=== PATIENT | male | born 1940 | race Caucasian/White ===

== ENCOUNTER 2017-02-20 15:26 | Emergency (ER) | payer OTHER ==
[2017-02-20 15:37] VITALS: BP 147/38; PULSE 65; TEMP 97.9; BMI 25.0
--- NOTE | 2017-02-20 17:20 | PDOC ---
History of Present Illness - General Chief Complaint: Chest Pain Stated Complaint: chest pain Time Seen by Provider: 02/20/17 17:19 History Source: Patient Exam Limitations: No Limitations Past History - Past Medical History Allergies/Adverse Reactions: Allergies Allergy/AdvReac Type Severity Reaction Status Date / Time Penicillins Allergy Unknown Verified 12/04/15 09:57 Home Medications: Ambulatory Orders NK [No Known Home Medication] 12/04/15 Suicide Attempt (Hx): No Other medical history: pt denies - Immunization History Immunization Up to Date: No - Psycho/Social/Smoking Cessation Hx Anxiety: No Suicidal Ideation: No Smoking History: Never smoked Have you smoked in the past 12 months: No If you are a former smoker, when did you quit?: 2012 Information on smoking cessation initiated: No Hx Alcohol Use: No Drug/Substance Use Hx: No Substance Use Type: None *Physical Exam - Vital Signs Last Vital Signs Temp Pulse Resp BP Pulse Ox 97.9 F 65 17 147/38 95 02/20/17 15:34 02/20/17 15:34 02/20/17 15:34 02/20/17 15:34 02/20/17 15:34 *DC/Admit/Observation/Transfer - Discharge Dispostion Disposition: AGAINST MEDICAL ADVICE - Referrals Referrals: Rosalie Silverman [Primary Care Provider] -
--- NOTE | 2017-02-20 17:50 | PDOC ---
Attending Attestation - Resident Resident Name: Frances Razo - ED Attending Attestation I have performed the following: I have examined & evaluated the patient, The case was reviewed & discussed with the resident, I agree w/resident's findings & plan, Exceptions are as noted
--- NOTE | 2017-02-23 10:43 | EKG ---
Test Reason : Blood Pressure : / mmHG Vent. Rate : 082 BPM Atrial Rate : 069 BPM P-R Int : 150 ms QRS Dur : 154 ms QT Int : 450 ms P-R-T Axes : 070 054 041 degrees QTc Int : 525 ms SINUS RHYTHM WITH OCCASIONAL PREMATURE VENTRICULAR COMPLEXES RIGHT BUNDLE BRANCH BLOCK ABNORMAL ECG WHEN COMPARED WITH ECG OF 04-DEC-2015 09:48, PREMATURE VENTRICULAR COMPLEXES ARE NOW PRESENT Confirmed by MICHAEL JAMESON, TORREY ([id number]) on 02/23/2017 10:43:08 AM Referred By: Confirmed By:TORREY RODRIGUEZ MD
== END 2017-02-20 18:38 | disposition left against medical advice (07) ==
LOC: JER 15:26
DX: Z53.21 Procedure and treatment not carried out due to patient leaving prior to being seen by health care provider (principal)
CPT/HCPCS: 71010-TC; 93005; 93010; 99281-25

== ENCOUNTER 2018-09-03 12:00 | Inpatient (IN) | payer OTHER ==
--- NOTE | 2018-09-03 12:18 | PDOC ---
History of Present Illness - General Stated Complaint: ABD PAIN Time Seen by Provider: 09/03/18 12:16 History Source: Patient Exam Limitations: No Limitations - History of Present Illness Initial Comments: 09/03/18 12:21 This is a 77 yo M with PMH of COPD, gerd and prior EtOH abuse (quit), who presents to ED due to severe 9/10 RUQ-epigastric abd pain. pain started yesterday morning as soon as he woke up, is constant, nonradiating, associated with 4 episodes of watery light brown diarrhea yesterday.He never had this pain before. He also complains of cough productive of yellow sputum since yesterday and on/off dull h/a. denies sob, cp, palpitations, lightheadedness, n/v, f/c, dysuria, hematuria, melena, hematochezia. no recent abx use or alcohol consumption. 09/03/18 13:19 09/03/18 13:22 Past History - Past Medical History Allergies/Adverse Reactions: Allergies Allergy/AdvReac Type Severity Reaction Status Date / Time Penicillins Allergy Unknown Verified 12/04/15 09:57 Home Medications: Ambulatory Orders NK [No Known Home Medication] 12/04/15 - Immunization History Immunization Up to Date: No - Suicide/Smoking/Psychosocial Hx Smoking History: Never smoked Have you smoked in the past 12 months: No If you are a former smoker, when did you quit?: 2012 Hx Alcohol Use: No Drug/Substance Use Hx: No Substance Use Type: None Review of Systems - Review of Systems Able to Perform ROS?: Yes Is the patient limited Korean proficient: No Constitutional: Yes: Weakness. No: Chills, Fever HEENTM: No: Nose Congestion, Throat Pain Respiratory: Yes: Cough (productive of yellow sputum ). No: Orthopnea, Shortness of Breath, Wheezing Cardiac (ROS): No: Chest Pain, Edema, Lightheadedness, Palpitations, Syncope ABD/GI: Yes: Diarrhea, Abdominal cramping (ruw). No: Abdominal Distended, Abd. Pain w/ defecation, Blood Streaked Bowels, Constipated, Nausea, Vomiting : No: Dysuria Musculoskeletal: No: Back Pain Neurological: Yes: Headache *Physical Exam - Physical Exam General Appearance: Yes: Nourished, Appropriately Dressed, Severe Distress. No : Alcohol on Breath HEENT: positive: EOMI, Normal Voice Neck: positive: Supple. negative: Tender, Carotid bruit, Lymphadenopathy (R), Lymphadenopathy (L) Respiratory/Chest: positive: Lungs Clear, Normal Breath Sounds Cardiovascular: positive: Regular Rate, S1, S2. negative: JVD Gastrointestinal/Abdominal: positive: Tender (ruq most tender, also tender in RLQ and epigasrium ), Decreased BS, Guarding (ruq voluntarily). 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 09/03/18 15:51 Abd us significant for distended GB and large complex renal cysts in R kidney ( as previously seen on MRI) 09/03/18 18:[address] pending 09/03/18 18:53 *DC/Admit/Observation/Transfer Diagnosis at time of Disposition: Abdominal pain Qualifiers: Abdominal location: right upper quadrant Qualified Code(s): R10.11 - Right upper quadrant pain - Referrals - Patient Instructions - Post Discharge Activity
[2018-09-03] MEDS ORDERED: morphine CARPU-JECT 4 MG/1 ML DISP.SYRIN IVPUSH ONE ×2 (12:47→14:06)
[2018-09-03] MEDS ORDERED: SODIUM CHLORIDE 0.9% 500 ML INFUS.BAG IV ONE ×2 (12:48→18:31)
--- NOTE | 2018-09-03 13:31 | PDOC ---
Attending Attestation - HPI HPI: This patient is a 77 year old Citizen Of [place]-speaking male, with PMHx of COPD, GERD, prior EtOH abuse(denies current use), who presents to the ED with RUQ pain since yesterday morning. Patient reports sudden onset after waking up, RUQ pain , constant, nonradiating, rates 9/10. Patient states that he has never experienced this pain before. He also endorses 4 episodes of non-bloody diarrhea yesterday. Also reports 2 days of coughing up yellow phlegm. Denies any nausea, vomiting, fever, chills, chest pain, palpitations, lightheadedness, urinary symptoms. Denies any recent antibiotic use, denies prior abdominal surgeries. Denies recent EtOH consumption. Allergies: penicillin - Physicial Exam PE: Vitals: Triage Vital signs reviewed General Appearance: writhing in pain, well nourished well developed Neck: Supple; No Nuchal rigidity Chest Wall: Nontender Cardiac: Regular rate and rhythm, no murmurs, no rubs, no gallops Lungs: Clear to auscultation bilateral, good air movement bilaterally Abdomen: Soft, non distended, normal bowel sounds, maximally tender to RUQ Genitourinary: Rectal: Exam deferred Extremities: Full range of motion to all extremities, no cyanosis, clubbing, or edema Skin: Warm and dry, no rashes or lesions, no rash, no petechiae Neuro: AOX3; Cranial Nerves 2-12 grossly intact, Strength intact to all extremities, Sensation intact to all extremities, gait normal Psych: Normal mood, normal affect <Sanjuana Hallman - Last Filed: 09/03/18 13:36> - Resident Resident Name: Rosie Garcia - ED Attending Attestation I have performed the following: I have examined & evaluated the patient, The case was reviewed & discussed with the resident, I agree w/resident's findings & plan, Exceptions are as noted - Medical Decision Making 09/03/18 16:21 This patient is a 77 year old Citizen [place]-speaking male, with PMHx of COPD, GERD, prior EtOH abuse(denies current use), who presents to the ED with RUQ pain since yesterday morning. Patient reports sudden onset after waking up, RUQ pain , constant, nonradiating, rates 9/10. Patient states that he has never experienced this pain before. He also endorses 4 episodes of non-bloody diarrhea yesterday. Also reports 2 days of coughing up yellow phlegm. Moderate to severe right upper quadrant pain distended gallbladder laboratory analysis within normal limits to the severity of pain we'll CT abdomen pelvis with IV contrast to rule out other pathology Dr. Cook to follow up CTA and reassess <Enoc Marrufo - Last Filed: 09/03/18 16:22>
[2018-09-03] MEDS ORDERED: ERTAPENEM SODIUM 1 GM/50 ML PRE-DOCKED IVPB ONE (13:36)
[2018-09-03] MEDS ORDERED: morphine SULFATE 4 MG/ML VIAL ONE ×2 (13:38→14:07)
[2018-09-03 14:03] LABS: BASO % 0.1 % (0-2.0); EOS % 9.8 % (0-4.5); HEMATOCRIT 32.8 % (35.4-49); HEMOGLOBIN 11.1 GM/dL (11.7-16.9); LYMPH % 20.7 % (8-40); MCH 30.4 pg (25.7-33.7); MEAN CELL VOLUME 89.3 fl (80-96); MEAN PLT VOLUME 11.2 fl (7.5-11.1); MONO % 6.7 % (3.8-10.2); NEUT % 62.7 % (42.8-82.8); PLATELET COUNT 90 K/MM3 (134-434); RBC 3.67 M/mm3 (4.00-5.60); RDW 14.3 % (11.9-15.9); WHITE BLOOD COUNT 4.3 K/mm3 (4.0-10.0)
[2018-09-03] MEDS ORDERED: ACETAMINOPHEN 1000 MG/100 ML VIAL (NON FORMULARY) IVPB ONE (14:06)
[2018-09-03 14:14] LABS: URINE APPEARANCE CLEAR; URINE BILIRUBIN NEGATIVE (<2.0 mg/dL); URINE COLOR YELLOW; URINE GLUCOSE (UA) NEGATIVE (NEGATIVE); URINE KETONE NEGATIVE (NEGATIVE); URINE LEUK ESTERASE NEGATIVE (NEGATIVE); URINE NITRITE NEGATIVE (NEGATIVE); URINE PROTEIN NEGATIVE (NEGATIVE); URINE UROBILINOGEN NEGATIVE mg/dL (0.2-1.0)
[2018-09-03 14:35] LABS: ALBUMIN 3.6 g/dl (3.4-5.0); ALK PHOS 95 U/L (45-117); ANION GAP 5 MMOL/L (8-16); BILIRUBIN,TOTAL 0.2 mg/dL (0.2-1); BLOOD UREA NITROGEN 20 mg/dL (7-18); CALCIUM 8.9 mg/dL (8.5-10.1); CHLORIDE 107 mmol/L (98-107); CO2 29 mmol/L (21-32); CREATININE 1.1 mg/dL (0.55-1.3); GLUCOSE,RANDOM 96 mg/dL (74-106); LIPASE 132 U/L (73-393); POTASSIUM 4.1 mmol/L (3.5-5.1); SGOT/AST 17 U/L (15-37); SGPT/ALT 25 U/L (13-61); SODIUM 141 mmol/L (136-145); TOT PROT 7.2 g/dl (6.4-8.2); TRIGLYCERIDES 99 mg/dL (0-150)
[2018-09-03] MEDS ORDERED: ACETAMINOPHEN INJECTION 100 ML IVPB ONE (15:03)
[2018-09-03] MEDS ORDERED: ERTAPENEM SODIUM 1 GM VIAL ONE (15:03)
[2018-09-03 15:56] LABS: INR 1.13 (0.83-1.09); PROTHROMBIN TIME (PATIENT) 13.4 SEC (9.7-13.0)
[2018-09-03 15:58] LABS: ACTIVATED PTT 28.9 SECONDS (25.2-36.5)
[2018-09-03] MEDS ORDERED: FAMOTIDINE 20 MG/50 ML IVPB 20 MG/50 ML MG IVPB ONE ×2 (18:14→18:31)
[2018-09-03] MEDS ORDERED: MAG HYDROX/AL HYDROX/SIMETH -MYLANTA- ORAL SUSPENSION PO ONE (18:14)
[2018-09-03] MEDS ORDERED: MAG HYDROX/AL HYDROX/SIMETH 30 ML UNIT-DOSE CUP ONE (18:31)
--- NOTE | 2018-09-03 19:31 | PDOC ---
*Physical Exam - Vital Signs Last Vital Signs Temp Pulse Resp BP Pulse Ox 97.3 F L 64 20 134/62 96 09/03/18 15:23 09/03/18 15:23 09/03/18 15:23 09/03/18 15:23 09/03/18 15:23 ED Treatment Course - LABORATORY CBC & Chemistry Diagram: 09/03/18 13:45 09/03/18 12:45 - ADDITIONAL ORDERS Additional order review: Laboratory Results 09/03/18 09/03/18 09/03/18 15:15 15:15 13:45 PT with INR 13.40 H INR 1.13 H PTT (Actin FS) 28.9 Sodium Potassium Chloride Carbon Dioxide Anion Gap BUN Creatinine Creat Clearance w eGFR Random Glucose Lactic Acid 1.3 Calcium Total Bilirubin AST ALT Alkaline Phosphatase Creatine Kinase Troponin I Total Protein Albumin Triglycerides Lipase Urine Color Urine Appearance Urine pH Ur Specific High View Urine Protein Urine Glucose (UA) Urine Ketones Urine Blood Urine Nitrite Urine Bilirubin Urine Urobilinogen Ur Leukocyte Esterase Blood Type O NEGATIVE Antibody Screen Negative 09/03/18 09/03/18 13:30 12:45 PT with INR INR PTT (Actin FS) Sodium 141 Potassium 4.1 Chloride 107 Carbon Dioxide 29 Anion Gap 5 L BUN 20 H Creatinine 1.1 Creat Clearance w eGFR > 60 Random Glucose 96 Lactic Acid Calcium 8.9 Total Bilirubin 0.2 AST 17 ALT 25 Alkaline Phosphatase 95 Creatine Kinase 40 Troponin I 0.02 Total Protein 7.2 Albumin 3.6 Triglycerides 99 Lipase 132 Urine Color Yellow Urine Appearance Clear Urine pH 7.0 Ur Specific High View 1.020 Urine Protein Negative Urine Glucose (UA) Negative Urine Ketones Negative Urine Blood Negative Urine Nitrite Negative Urine Bilirubin Negative Urine Urobilinogen Negative Ur Leukocyte Esterase Negative Blood Type Antibody Screen 09/03/18 13:45 RBC 3.67 L MCV 89.3 MCHC 34.0 RDW 14.3 MPV 11.2 H Neutrophils % 62.7 Lymphocytes % 20.7 D Monocytes % 6.7 Eosinophils % 9.8 H Basophils % 0.1 - Medications Given in the ED: ED Medications Discontinued Medications Generic Name Dose Route Start Last Admin Trade Name Freq PRN Reason Stop Dose Admin Acetaminophen 1,000 mg 09/03/18 14:06 09/03/18 15:07 Ofirmev Injection - IVPB 09/03/18 14:07 1,000 mg ONCE ONE Administration Al Hydroxide/Mg Hydroxide 30 ml 09/03/18 18:14 09/03/18 18:30 Mylanta Suspension - PO 09/03/18 18:15 30 mg ONCE ONE Administration Ertapenem 1 gm 09/03/18 13:36 09/03/18 15:36 Invanz (Pre-Docked) IVPB 09/03/18 13:37 1 gm ONCE ONE Administration Famotidine/Sodium Chloride 20 mg in 50 mls @ 100 mls/hr 09/03/18 18:14 18:30 Pepcid 20 Mg Premixed Ivpb - IVPB 09/03/18 18:43 100 mls/hr ONCE ONE Administration Morphine Sulfate 4 mg 09/03/18 12:47 09/03/18 13:35 Morphine Injection - IVPUSH 09/03/18 12:48 4 mg ONCE ONE Administration Morphine Sulfate 4 mg 09/03/18 14:06 09/03/18 14:09 Morphine Injection - IVPUSH 09/03/18 14:07 4 mg ONCE ONE Administration Sodium Chloride 1,000 ml 09/03/18 12:48 09/03/18 13:35 Normal Saline - IV 09/03/18 12:49 1,000 ml ONCE ONE Administration Sodium Chloride 1,000 ml 09/03/18 18:31 09/03/18 19:00 Normal Saline - IV 09/03/18 18:32 1,000 ml ONCE ONE Administration Medical Decision Making - Medical Decision Making 09/03/18 19:29 Received sign out from Dr Garcia. Amara You is a 77yo man with a PMH of COPD, GERD, former alcohol abuse who presented to the ED with 9/10, non-radiating, constant epigastric and RUQ abdominal pain since yesterday along with 2x watery diarrhea yesterday without nausea, vomiting, or fevers. He has never had similar pain in the past. ED course so far notable for: - Labs unremarkable - Multiple doses of pain medication required due to persistent pain - Abd US without concerning findings - CT abd indicates gallbladder w/ thickened wall, mild pericholecystic edema, no stone. Also shows ileus w/ air-fluid levels. R renal cysts, seen previously - Will need to be admitted for management of ileus, possible acalculus cholecystitis 09/03/18 19:53 - Discussed admission with Mr You and his grandson, at bedside. They understand the reasons for admission and agree with the plan. - Microblog sent to hospitalist team for admission Discussed with Dr Sandhya Kelley PGY1 *DC/Admit/Observation/Transfer Diagnosis at time of Disposition: Ileus Abdominal pain Qualifiers: Abdominal location: right upper quadrant Qualified Code(s): R10.11 - Right upper quadrant pain - Discharge Dispostion Decision to Admit order: Yes - Referrals - Patient Instructions - Post Discharge Activity
--- NOTE | 2018-09-03 20:01 | PN ---
Teaching Attending Note Name of Resident: Shy Louise ATTENDING PHYSICIAN STATEMENT I saw and evaluated the patient. I reviewed the resident's note and discussed the case with the resident. I agree with the resident's findings and plan as documented. SUBJECTIVE: Patient is a 77 year old man with PMH of COPD, GERD, penicillin allergy and prior EtOH abuse, who presents to ER due to severe RUQ-epigastric pain (9/10 severity). Pain started yesterday morning as soon as he woke up, is constant, nonradiating, associated with 4 episodes of watery light brown diarrhea yesterday.He never had this pain before. He also complains of cough productive of yellow sputum since yesterday and on/off dull h/a. denies sob, cp, palpitations, lightheadedness, n/v, f/c, dysuria, hematuria, melena, hematochezia. no recent antibiotics use or alcohol consumption. OBJECTIVE: Alert Vital Signs Period Temp Pulse Resp BP Sys/Billy Pulse Ox Last 24 Hr 97.2 F-97.3 F 52-64 20-20 134-155/62-64 96-99 HEENT: No Jaundice, eye redness or discharge, PERRLA, EOMI. Normocephalic, atraumatic. External ears are normal and hearing is grossly intact. No nasal discharge. Neck: Supple, nontender. No palpable adenopathy; has thyromegaly. No JVD Chest: Good effort. Clear to auscultation and percussion. Heart: Regular. No S3, rub or murmur Abdomen: Not distended, soft, tender RUQ/RLQ and epigastrium; no HSM. No rebound or guarding. Normoactive bowel sounds. Ext: Peripheral pulses intact. No leg edema. Skin: Warm and dry. No petechiae, rash or ecchymosis. Neuro: Alert. Oriented x3. CN 2-12 grossly intact. Sensation grossly intact in all four extremities and DTR are symmetric. Home Medications Medication Instructions Recorded NK [No Known Home Medication] 12/04/15 Abnormal Lab Results 09/03/18 09/03/18 09/03/18 12:45 13:45 15:15 RBC 3.67 L Hgb 11.1 L Hct 32.8 L Plt Count 90 L MPV 11.2 H Eosinophils % 9.8 H PT with INR 13.40 H INR 1.13 H Anion Gap 5 L BUN 20 H ASSESSMENT AND PLAN: 1. Abdominal Pain - CT scan shows distended gall bladder and associated mild ileus. Cholecystitis is likely culprit. No mention is made of the colon in the preliminary CT abdomen report. He is afebrile and does not have leukocytosis - will withhold antibiotics at this time, get HIDA scan, consult Surgery and GI. He had 4 loose bowel movements yesterday - if diarrhea reoccurs, will send stool for ova and parasites in view of chronic eosinophilia and trips to [facility]. Low platelets is chronic and likely related to alcohol abuse. Keep him NPO, give IV fluids and pain control. Will do basic anemia work up, outpatient urology follow up for multiple renal cysts and right hydronephrosis, TFT and thyroid ultrasound. Though he has not had a drink since Jul 2018, but we will monitor him closely for signs of alcohol withdrawal. 2. Obesity - Will provide patient all the necessary assistance, counseling and positive reinforcement to facilitate weight loss. Consult preventive maintenance coordinator. 3. DVT prophylaxis - Lovenox 40 mg SQ q 24 hours. 4. Advance directives - Full code
[2018-09-03] MEDS ORDERED: morphine CARPU-JECT 2 MG/1 ML DISP.SYRIN IVPUSH PRN (21:23)
[2018-09-03] MEDS ORDERED: ACETAMINOPHEN 325 MG TABLET (FP) PO PRN (21:27)
--- NOTE | 2018-09-03 21:36 | HP ---
CHIEF COMPLAINT: abdominal pain PCP: none HISTORY OF PRESENT ILLNESS: 77 [place]-speaking male w/ pmhx of COPD, GERD, EtOH abuse presented to the hospital with complaints of RUQ abdominal pain since yesterday morning. Pt's grandson is present at bedside. He states the pain was 9/10, severe, constant, non-radiating. It started right when he woke up in the morning and denies eating prior to this episode. He also states he has not had this pain in the past. Pt also admits to 4 episodes of watery light brown diarrhea yesterday. He denies eating anything and notes that the last food intake was a slice of bread yesterday. Admits to nausea, intermittent headaches, and pain all over the body when his abdominal pain intensifies. He denies chest pain, sob, urinary/bowel symptoms, blood in urine/stool. He has only taken DayQuil yesterday for his symptoms, but with no relief. ER course was notable for: (1) Abd U/S showed overdistended GB, CTAP (initial read) showed GB is moderately distended w/ a thickened appearance of the GB wall and mild pericholecystic edema concerning for cholecystitis (2) Morphine 4 mg IVP x2, Ertapenem 1gm, IV Tylenol, Mylanta 30 mL, Pepcid 20 mg IVPB, NS x 2L Recent Travel: Recently arrived in the [place] from after 2 months (Pt visits his home country for extended periods of time throughout the year) PAST MEDICAL HISTORY: EtOH abuse COPD GERD PAST SURGICAL HISTORY: laser surgery on b/l LE Social History: Smoking: former smoker, stopped 20 years ago Alcohol: stopped drinking heavily about 1 month ago, used to drink 3 times a week about 1 bottle of liquor; last drink, however was this past Thursday (1 beer) Drugs: Denies Family History: Allergies Penicillins Allergy (Unknown, Verified 12/04/15 09:57) HOME MEDICATIONS: Home Medications Medication Instructions Recorded NK [No Known Home Medication] 12/04/15 REVIEW OF SYSTEMS CONSTITUTIONAL: Admits to loss of appetite; Denies fever, chills, diaphoresis, generalized weakness HEENT: Admits to cough, but denies difficulty swallowing, ear pain, eye pain CARDIOVASCULAR: Denies chest pain, palpitations, irregular heart rate, lightheadedness, peripheral edema RESPIRATORY: Admits to cough; denies sob, hoskins, orthopnea, wheezing GASTROINTESTINAL: Admits to severe abd pain, nausea, diarrhea; Denies abdominal distension, vomiting, constipation GENITOURINARY: Denies hematuria, dysuria MUSCULOSKELETAL: Admits to myalgia when abd pain spikes NEUROLOGIC: Admits to shabazz; denies dizziness, mental status changes, bladder/ bowel incontinence PHYSICAL EXAMINATION Vital Signs - 24 hr 09/03/18 09/03/18 09/03/18 12:35 15:23 20:49 Temperature 97.2 F L 97.3 F L 98.1 F Pulse Rate 52 L Pulse Rate [ 64 60 Apical] Respiratory 20 20 20 Rate Blood Pressure 155/64 Blood Pressure 134/62 140/65 [Right Arm] O2 Sat by Pulse 99 96 96 Oximetry (%) GENERAL: AAOx3. Laying comfortably. HEENT: AT/NC. EOMI. Dry mucus membranes. NECK: Normal range of motion, thyromegaly. LUNGS: B/l fine crackles in lower lung bases. Symmetric chest rise. HEART: RRR. Normal S1, S2. No murmurs noted. ABDOMEN: Soft, tender to palpation in RUQ. +Brown sign. MUSCULOSKELETAL: Normal range of motion at all joints EXTREMITIES: 5/5 muscle strenght in u/l b/l extremities. NEUROLOGICAL: Cranial nerves II-XII intact. Normal speech. CBCD WBC 4.3 K/mm3 (4.0-10.0) 09/03/18 13:45 RBC 3.67 M/mm3 (4.00-5.60) L 09/03/18 13:45 Hgb 11.1 GM/dL (11.7-16.9) L 09/03/18 13:45 Hct 32.8 % (35.4-49) L 09/03/18 13:45 MCV 89.3 fl (80-96) 09/03/18 13:45 MCHC 34.0 g/dl (32.0-35.9) 09/03/18 13:45 RDW 14.3 % (11.9-15.9) 09/03/18 13:45 Plt Count 90 K/MM3 (134-434) L 09/03/18 13:45 MPV 11.2 fl (7.5-11.1) H 09/03/18 13:45 CMP Sodium 141 mmol/L (136-145) 09/03/18 12:45 Potassium 4.1 mmol/L (3.5-5.1) 09/03/18 12:45 Chloride 107 mmol/L (98-107) 09/03/18 12:45 Carbon Dioxide 29 mmol/L (21-32) 09/03/18 12:45 Anion Gap 5 MMOL/L (8-16) L 09/03/18 12:45 BUN 20 mg/dL (7-18) H 09/03/18 12:45 Creatinine 1.1 mg/dL (0.55-1.3) 09/03/18 12:45 Creat Clearance w eGFR > 60 (>60) 09/03/18 12:45 Calcium 8.9 mg/dL (8.5-10.1) 09/03/18 12:45 Total Bilirubin 0.2 mg/dL (0.2-1) 09/03/18 12:45 AST 17 U/L (15-37) 09/03/18 12:45 ALT 25 U/L (13-61) 09/03/18 12:45 Alkaline Phosphatase 95 U/L (45-117) 09/03/18 12:45 Total Protein 7.2 g/dl (6.4-8.2) 09/03/18 12:45 Albumin 3.6 g/dl (3.4-5.0) 09/03/18 12:45 CONSULT Surg- Dr. Gregorio IMAGING * CXR: Interval patchy airspace nodular-like densities in the RUL at site of previously visualized multiple bulla suggestive of infiltrates w/ pleural thickening. * Abd U/S: Borderline over-distended GB w/o intraluminal stones or sonographic evidence of acute cholecystitis. Multiple R renal cysts/parapelvic cysts w/ the largest measuring 5.3 x 3.9 cm. Splenomegaly. * CTAP w/ IV contrast: ([place] read) GB is moderately distended w/ a thickened appearance of the GB wall and mild pericholecystic edema concerning for cholecystitis. NO radio-opaque stones visualized. Liver, spleen, pancreas and adrenal glands are unremarkable. Multiple R renal cysts including a lobulated upper pole cyst w/ calcified septations. 2 small L renal cysts. Few non-distended loops of fluid-filled small bowel w/ air-fluid levels, likely ileus. No discrete transition point identified. Normal appendix. Diffuse mild thickened appearance of the colon may be 2/2 under distension vs. colitis. ASSESSMENT/PLAN: 77M w/ pmhx of COPD, GERD, EtOH abuse presented to the hospital with 1 day history of abdominal pain. #Abdominal pain; 2/2 ileus, acalculous cholecystitis, vs. gastritis -Pt's abdominal pain is controlled and now 3/10 after pain meds. He is afebrile with normal white count, and LFTs. Although abd imaging shows overdistended GB, clinically pt does not seem to have an infection at this time. He was given one dose of Ertapenem in the ED so far. Will hold antibiotics for now as pt is clinically improving. -Morphine 2 mg IVP for pain -NPO -IVf -Surg consult (Dr. Gregorio) -Consider GI consult #Diarrhea; Pt had 4 episodes of watery light brown diarrhea yesterday and also just arrived from the [facility] recently. -Due to eosinophilia and recent travel to the [facility], will order stool culture/ova & parasites -cont to monitor #Hx of EtOH abuse; Recently quit heavy drinking about 1 month ago. -Stable, but will cont to monitor for signs of withdrawal. #Thrombocytopenia; likely 2/2 to significant hx of alcohol abuse -hold heparin for possible surgery #Bilateral renal cysts -will need outpatient follow up #Ppx -SCDs, hold heparin #FEN -NS @ 83 -recheck lytes in AM -NPO dispo -full code -admit to med-surg Visit type - Emergency Visit Emergency Visit: Yes ED Registration Date: 09/03/18 Care time: The patient presented to the Emergency Department on the above date and was hospitalized for further evaluation of their emergent condition. - New Patient This patient is new to me today: Yes Date on this admission: 09/04/18 - Critical Care Critical Care patient: No
[2018-09-03] MEDS: SODIUM CHLORIDE 1,000 ML IV SCH (21:43)
[2018-09-04 08:57] LABS: BASO % 0.3 % (0-2.0); EOS % 11.5 % (0-4.5); HEMATOCRIT 32.4 % (35.4-49); HEMOGLOBIN 11.1 GM/dL (11.7-16.9); LYMPH % 34.8 % (8-40); MCH 30.5 pg (25.7-33.7); MCHC 34.1 g/dl (32.0-35.9); MEAN CELL VOLUME 89.4 fl (80-96); MEAN PLT VOLUME 12.4 fl (7.5-11.1); MONO % 8.4 % (3.8-10.2); PLATELET COUNT 69 K/MM3 (134-434); RBC 3.62 M/mm3 (4.00-5.60); RDW 14.2 % (11.9-15.9); WHITE BLOOD COUNT 2.7 K/mm3 (4.0-10.0)
[2018-09-04 09:19] LABS: ALBUMIN 3.1 g/dl (3.4-5.0); ALK PHOS 93 U/L (45-117); ANION GAP 3 MMOL/L (8-16); BILIRUBIN,TOTAL 0.4 mg/dL (0.2-1); BLOOD UREA NITROGEN 15 mg/dL (7-18); CALCIUM 8.4 mg/dL (8.5-10.1); CHLORIDE 111 mmol/L (98-107); CO2 28 mmol/L (21-32); CREATININE 0.9 mg/dL (0.55-1.3); GLUCOSE,RANDOM 73 mg/dL (74-106); MAGNESIUM 2.1 mg/dL (1.8-2.4); PHOSPHOROUS 2.8 mg/dL (2.5-4.9); POTASSIUM 4.4 mmol/L (3.5-5.1); SGOT/AST 49 U/L (15-37); SGPT/ALT 53 U/L (13-61); SODIUM 143 mmol/L (136-145); TOT PROT 6.4 g/dl (6.4-8.2)
[2018-09-04] MEDS: SODIUM CHLORIDE 1,000 ML IV SCH ×2 (10:33→23:23)
--- NOTE | 2018-09-04 11:09 | CONSULT ---
- Consultation REQUESTING PROVIDER: Aspen JAMESON CONSULT REQUEST: We have been asked to surgically evaluate this patient for abdominal pain PCP:Devan Perrin HISTORY OF PRESENT ILLNESS: CTSP for management of abdominal pain; hx. obtained in [place] PMHx: PSHx: Home Medications Medication Instructions Recorded NK [No Known Home Medication] 12/04/15 Allergies Allergy/AdvReac Type Severity Reaction Status Date / Time Penicillins Allergy Unknown Verified 12/04/15 09:57 PHYSICAL EXAM: GENERAL: Awake, alert, and fully oriented, in no acute distress. HEAD: Normal with no signs of trauma. EYES:sclera anicteric, conjunctiva clear. NECK: Normal ROM, supple without lymphadenopathy, JVD, or masses. ABDOMEN: Soft, diffusely tender, not distended, hyperactive bowel sounds, no guarding, no rebound, no masses. No organomegaly. No hernias MUSCULOSKELETAL: Normal ROM at all joints. No bony deformities or tenderness. No CVA tenderness. UPPER EXTREMITIES: 2+ pulses, warm, well-perfused. No cyanosis. Cap refill <2 seconds. No peripheral edema. LOWER EXTREMITIES: 2+ pulses, warm, well-perfused. No calf tenderness. No peripheral edema. NEUROLOGICAL: Normal speech, gait not observed. PSYCH: Cooperative. Good eye contact. Appropriate mood and affect. SKIN: Warm, dry, normal turgor, no rashes or lesions noted. Vital Signs Temperature 97.4 F L 09/04/18 06:00 Pulse Rate 67 09/04/18 06:00 Respiratory Rate 18 09/04/18 06:00 Blood Pressure 141/76 09/04/18 06:00 O2 Sat by Pulse Oximetry (%) 96 09/03/18 20:49 Lab Results WBC 2.7 K/mm3 (4.0-10.0) L 09/04/18 07:50 RBC 3.62 M/mm3 (4.00-5.60) L 09/04/18 07:50 Hgb 11.1 GM/dL (11.7-16.9) L 09/04/18 07:50 Hct 32.4 % (35.4-49) L 09/04/18 07:50 MCV 89.4 fl (80-96) 09/04/18 07:50 MCHC 34.1 g/dl (32.0-35.9) 09/04/18 07:50 RDW 14.2 % (11.9-15.9) 09/04/18 07:50 Plt Count 69 K/MM3 (134-434) L D 09/04/18 07:50 Sodium 143 mmol/L (136-145) 09/04/18 07:50 Potassium 4.4 mmol/L (3.5-5.1) 09/04/18 07:50 Chloride 111 mmol/L (98-107) H 09/04/18 07:50 Carbon Dioxide 28 mmol/L (21-32) 09/04/18 07:50 Anion Gap 3 MMOL/L (8-16) L 09/04/18 07:50 BUN 15 mg/dL (7-18) 09/04/18 07:50 Creatinine 0.9 mg/dL (0.55-1.3) 09/04/18 07:50 Random Glucose 73 mg/dL (74-106) L 09/04/18 07:50 Calcium 8.4 mg/dL (8.5-10.1) L 09/04/18 07:50 Blood Type O NEGATIVE 09/03/18 19:15 Antibody Screen Negative 09/03/18 15:15 INR 1.13 (0.83-1.09) H 09/03/18 15:15 CT a/p-pancolitis; ileus vs. partial sbo(doubt); renal cysts and other non specific findings US-w/o cholelithiasis IMP:abdominal pain; most likely pancolotis; hx/PE/imaging findings not c/w biliary tract as source of complaints PLAN: Suggest NPO/IVF/w/u for infectious colitis; will f/u; no evidence of an acute surgical abdomen. Sharan Gregorio MD FACS
--- NOTE | 2018-09-04 12:18 | PN ---
Progress Note (short form) - Note Progress Note: Patient is c/o having severe abdominal pain RUQ area. Vital Signs Temperature 97.5 F L 09/04/18 10:00 Pulse Rate 64 09/04/18 10:00 Respiratory Rate 20 09/04/18 10:00 Blood Pressure 134/70 09/04/18 10:00 O2 Sat by Pulse Oximetry (%) 96 09/03/18 20:49 GENERAL: AAOx3. Laying comfortably. HEENT: AT/NC. EOMI. Dry mucus membranes. NECK: Normal range of motion, thyromegaly. LUNGS: B/l fine crackles in lower lung bases. Symmetric chest rise. HEART: RRR. Normal S1, S2. No murmurs noted. ABDOMEN: Soft, tender to palpation in RUQ. +Brown sign. MUSCULOSKELETAL: Normal range of motion at all joints EXTREMITIES: 5/5 muscle strenght in u/l b/l extremities. NEUROLOGICAL: Cranial nerves II-XII intact. Normal speech. CBCD WBC 2.7 K/mm3 (4.0-10.0) L 09/04/18 07:50 RBC 3.62 M/mm3 (4.00-5.60) L 09/04/18 07:50 Hgb 11.1 GM/dL (11.7-16.9) L 09/04/18 07:50 Hct 32.4 % (35.4-49) L 09/04/18 07:50 MCV 89.4 fl (80-96) 09/04/18 07:50 MCHC 34.1 g/dl (32.0-35.9) 09/04/18 07:50 RDW 14.2 % (11.9-15.9) 09/04/18 07:50 Plt Count 69 K/MM3 (134-434) L D 09/04/18 07:50 MPV 12.4 fl (7.5-11.1) H D 09/04/18 07:50 CMP Sodium 143 mmol/L (136-145) 09/04/18 07:50 Potassium 4.4 mmol/L (3.5-5.1) 09/04/18 07:50 Chloride 111 mmol/L (98-107) H 09/04/18 07:50 Carbon Dioxide 28 mmol/L (21-32) 09/04/18 07:50 Anion Gap 3 MMOL/L (8-16) L 09/04/18 07:50 BUN 15 mg/dL (7-18) 09/04/18 07:50 Creatinine 0.9 mg/dL (0.55-1.3) 09/04/18 07:50 Creat Clearance w eGFR > 60 (>60) 09/04/18 07:50 Random Glucose 73 mg/dL (74-106) L 09/04/18 07:50 Calcium 8.4 mg/dL (8.5-10.1) L 09/04/18 07:50 Total Bilirubin 0.4 mg/dL (0.2-1) 09/04/18 07:50 AST 49 U/L (15-37) H 09/04/18 07:50 ALT 53 U/L (13-61) 09/04/18 07:50 Alkaline Phosphatase 93 U/L (45-117) 09/04/18 07:50 Total Protein 6.4 g/dl (6.4-8.2) 09/04/18 07:50 Albumin 3.1 g/dl (3.4-5.0) L 09/04/18 07:50 CARDIAC ENZYMES Creatine Kinase 40 U/L (26-308) 09/03/18 12:45 Troponin I 0.02 ng/ml (0.00-0.05) 09/03/18 12:45 Current Medications Generic Name Dose Route Start Last Admin Trade Name Freq PRN Reason Stop Dose Admin Acetaminophen 650 mg 09/03/18 21:27 Tylenol - PO Q6H PRN PAIN LEVEL 6-10 Sodium Chloride 1,000 mls @ 83 mls/hr 09/03/18 21:30 09/04/18 10:33 Normal Saline - IV 09/06/18 09:33 83 mls/hr ASDIR PATRICK Administration Morphine Sulfate 2 mg 09/04/18 07:35 Morphine Sulfate IVPUSH Q4H PRN PAIN LEVEL 6-10 Home Medications Medication Instructions Recorded NK [No Known Home Medication] 12/04/15 Current Medications Generic Name Dose Route Start Last Admin Trade Name Freq PRN Reason Stop Dose Admin Acetaminophen 1,000 mg 09/04/18 16:13 Ofirmev Injection - IVPB Q8H PRN PAIN LEVEL 4 - 6 Sodium Chloride 1,000 mls @ 83 mls/hr 09/03/18 21:30 09/04/18 10:33 Normal Saline - IV 09/06/18 09:33 83 mls/hr ASDIR PATRICK Administration Metronidazole 500 mg in 100 mls @ 100 mls/hr 09/04/18 18:00 Flagyl 500mg Premixed Ivpb - IVPB Q8H-IV PATRICK Levofloxacin 500 mg in 100 mls @ 100 mls/hr 09/04/18 16:15 Levaquin 500 Mg Premixed Ivpb - IVPB DAILY PATRICK Protocol Morphine Sulfate 2 mg 09/04/18 07:35 09/04/18 14:56 Morphine Sulfate IVPUSH 2 mg Q4H PRN Administration PAIN LEVEL 7-10 CXR: Interval patchy airspace nodular-like densities in the RUL at site of previously visualized multiple bulla suggestive of infiltrates w/ pleural thickening. Abd U/S: Borderline over-distended GB w/o intraluminal stones or sonographic evidence of acute cholecystitis. Multiple R renal cysts/parapelvic cysts w/ the largest measuring 5.3 x 3.9 cm. Splenomegaly. CTAP w/ IV contrast: ([place] read) GB is moderately distended w/ a thickened appearance of the GB wall and mild pericholecystic edema concerning for cholecystitis. NO radio-opaque stones visualized. Liver, spleen, pancreas and adrenal glands are unremarkable. Multiple R renal cysts including a lobulated upper pole cyst w/ calcified septations. 2 small L renal cysts. Few non-distended loops of fluid-filled small bowel w/ air-fluid levels, likely ileus. No discrete transition point identified. Normal appendix. Diffuse mild thickened appearance of the colon may be 2/2 under distension vs. colitis. ASSESSMENT/PLAN: 77M w/ pmhx of COPD, GERD, EtOH abuse presented to the hospital with 1 day history of abdominal pain. # Acute pancolitis will start the patient on IV antibiotic levaquin/flagyl IV, GI and ID consult appreciated, surgical consult appreciated. #Diarrhea; Pt had 4 episodes of watery light brown diarrhea yesterday and also just arrived from the [place] recently. -Due to eosinophilia and recent travel to the [place], will order stool culture/ova & parasites, follow the cx #RUQ cannot r/o acute cholecystitis ,will start the patient antibiotic #Hx of EtOH abuse; Recently quit heavy drinking about 1 month ago. -Stable, but will cont to monitor for signs of withdrawal. #Thrombocytopenia; likely 2/2 to significant hx of alcohol abuse -hold heparin for possible surgery #Bilateral multiple renal cysts , will get nephro consult. -will need outpatient follow up #Ppx; SCDs, hold heparin Visit type - Emergency Visit Emergency Visit: Yes ED Registration Date: 09/03/18 Care time: The patient presented to the Emergency Department on the above date and was hospitalized for further evaluation of their emergent condition. - New Patient This patient is new to me today: Yes Date on this admission: 09/04/18 - Critical Care Critical Care patient: Yes Total Critical Care Time (in minutes): 35 Critical Care Statement: The care of this patient involved high complexity decision making to prevent further life threatening deterioration of the patient 's condition and/or to evaluate & treat vital organ system(s) failure or risk of failure. - Discharge Referral Referred to [facility] No
[2018-09-04] MEDS: MORPHINE SULFATE 2 MG/ML VIAL IVPUSH PRN (14:56)
[2018-09-04] MEDS ORDERED: ACETAMINOPHEN 1000 MG/100 ML VIAL (NON FORMULARY) IVPB PRN (16:13)
--- NOTE | 2018-09-04 16:44 | EKG ---
Test Reason : Blood Pressure : / mmHG Vent. Rate : 058 BPM Atrial Rate : 058 BPM P-R Int : 146 ms QRS Dur : 140 ms QT Int : 480 ms P-R-T Axes : 063 055 042 degrees QTc Int : 471 ms POOR DATA QUALITY, INTERPRETATION MAY BE ADVERSELY AFFECTED SINUS BRADYCARDIA RIGHT BUNDLE BRANCH BLOCK ABNORMAL ECG WHEN COMPARED WITH ECG OF 20-FEB-2017 15:44, PREMATURE VENTRICULAR COMPLEXES ARE NO LONGER PRESENT NONSPECIFIC T WAVE ABNORMALITY NO LONGER EVIDENT IN ANTERIOR LEADS QT HAS SHORTENED Confirmed by Sviltana Mcintosh ([id number]) on 09/04/2018 4:44:24 PM Referred By: Confirmed By:Svitlana Mcintosh
--- NOTE | 2018-09-04 18:28 | CON.NEP ---
Consult Consult Specialty:: nephrology Referred by:: cherise Reason for Consultation:: renal cysts - History of Present Illness Chief Complaint: abd pain - Alcohol/Substance Use Hx Alcohol Use: Yes - Smoking History Smoking history: Former smoker Have you smoked in the past 12 months: No If you are a former smoker, when did you quit?: 2012 Home Medications - Allergies Allergies/Adverse Reactions: Allergies Allergy/AdvReac Type Severity Reaction Status Date / Time Penicillins Allergy Unknown Verified 12/04/15 09:57 - Home Medications Home Medications: Ambulatory Orders NK [No Known Home Medication] 12/04/15 Nephrology Consult - Height Height: 5 ft 8 in - Weight Weight: 161 lb 14.4 oz - BMI Body Mass Index (BMI): 24.6 - Lab Results CBC,BMP: CBC, BMP 09/04/18 07:50 09/04/18 07:50 Anion Gap: Anion Gap Anion Gap 3 MMOL/L (8-16) L 09/04/18 07:50 - Physical Examination Vital Signs: Vital Signs Temperature 98.2 F 09/04/18 15:29 Pulse Rate 71 09/04/18 15:29 Respiratory Rate 20 09/04/18 15:29 Blood Pressure 144/74 09/04/18 15:29 O2 Sat by Pulse Oximetry (%) 95 09/04/18 09:00 Constitutional: Yes: Thin Eyes: Yes: WNL, Conjunctiva Clear, EOM Intact HENT: Yes: WNL, Atraumatic, Normocephalic Neck: Yes: WNL, Supple, Trachea Midline Cardiovascular: Yes: WNL, Regular Rate and Rhythm Respiratory: Yes: WNL, Regular, CTA Bilaterally Gastrointestinal: Yes: Normal Bowel Sounds, Soft, Tenderness Renal/: No: CVA Tenderness - Left (difficult to assess-), CVA Tenderness - Right, Hematuria Musculoskeletal: Yes: WNL Extremities: Yes: WNL Edema: No Peripheral Pulses WNL: Yes Integumentary: Yes: WNL Neurological: Yes: WNL, Alert, Oriented Assessment/Plan multiple bilateral renal cysts mild azotemia/ urine is clear no sediment gfr >60 Prerenal azotemia on admission no hematuria - unlikely ruptured renal cysts symptoms more likely from GI process will follow with you
[2018-09-05 07:15] LABS: BASO % 0.4 % (0-2.0); EOS % 13.4 % (0-4.5); HEMATOCRIT 30.1 % (35.4-49); HEMOGLOBIN 10.5 GM/dL (11.7-16.9); LYMPH % 30.9 % (8-40); MCH 31.1 pg (25.7-33.7); MEAN PLT VOLUME 13.2 fl (7.5-11.1); MONO % 7.2 % (3.8-10.2); NEUT % 48.1 % (42.8-82.8); PLATELET COUNT 79 K/MM3 (134-434); RBC 3.38 M/mm3 (4.00-5.60)
--- NOTE | 2018-09-05 09:07 | PN ---
Physical Exam: SUBJECTIVE: Patient seen and examined at bedside. Reports mild RUQ abdominal pain but no n/v/d. No BM today. denies chest pain. OBJECTIVE: Vital Signs Period Temp Pulse Resp BP Sys/Billy Pulse Ox Last 24 Hr 97.5 F-98.3 F 61-72 18-20 133-168/61-74 95 GENERAL: A&Ox3, no acute distress EYES: PERRLA, EOMI ENT: Moist mucus membranes NECK: No JVD LUNGS: CTA, no wheezes HEART: RRR, no murmurs ABDOMEN: Soft, mild RUQ abdominal pain, BS present MUSCULOSKELETAL: No CVA Tenderness EXTREMITIES: 2+ pulses, no edema. NEUROLOGICAL: Cranial nerves II-XII intact. Laboratory Results - last 24 hr 09/04/18 09/04/18 09/05/18 07:50 07:50 06:00 WBC 2.7 L 3.0 L RBC 3.62 L 3.38 L Hgb 11.1 L 10.5 L Hct 32.4 L 30.1 L MCV 89.4 89.0 MCH 30.5 31.1 MCHC 34.1 35.0 RDW 14.2 14.0 Plt Count 69 L D 79 L MPV 12.4 H D 13.2 H Absolute Neuts (auto) 1.2 L 1.4 L Neutrophils % 45.0 D 48.1 Lymphocytes % 34.8 D 30.9 Monocytes % 8.4 7.2 Eosinophils % 11.5 H 13.4 H Basophils % 0.3 0.4 Nucleated RBC % 0 0 Sodium 143 Potassium 4.4 Chloride 111 H Carbon Dioxide 28 Anion Gap 3 L BUN 15 Creatinine 0.9 Creat Clearance w eGFR > 60 Random Glucose 73 L Calcium 8.4 L Phosphorus 2.8 Magnesium 2.1 Total Bilirubin 0.4 AST 49 H ALT 53 Alkaline Phosphatase 93 Total Protein 6.4 Albumin 3.1 L Active Medications Generic Name Dose Route Start Last Admin Trade Name Freq PRN Reason Stop Dose Admin Acetaminophen 1,000 mg 09/04/18 16:13 Ofirmev Injection - IVPB Q8H PRN PAIN LEVEL 4 - 6 Sodium Chloride 1,000 mls @ 83 mls/hr 09/03/18 21:30 09/04/18 23:23 Normal Saline - IV 09/06/18 09:33 83 mls/hr ASDIR PATRICK Administration Metronidazole 500 mg in 100 mls @ 100 mls/hr 09/04/18 18:00 09/05/18 02:02 Flagyl 500mg Premixed Ivpb - IVPB 100 mls/hr Q8H-IV PATRICK Administration Levofloxacin 500 mg in 100 mls @ 100 mls/hr 09/04/18 16:15 09/04/18 16:40 Levaquin 500 Mg Premixed Ivpb - IVPB 100 mls/hr DAILY PATRICK Administration Protocol Morphine Sulfate 2 mg 09/04/18 07:35 09/04/18 14:56 Morphine Sulfate IVPUSH 2 mg Q4H PRN Administration PAIN LEVEL 7-10 IMAGING * CXR: Interval patchy airspace nodular-like densities in the RUL at site of previously visualized multiple bulla suggestive of infiltrates w/ pleural thickening. * Abd U/S: Borderline over-distended GB w/o intraluminal stones or sonographic evidence of acute cholecystitis. Multiple R renal cysts/parapelvic cysts w/ the largest measuring 5.3 x 3.9 cm. Splenomegaly. * CTAP w/ IV contrast: ([place] read) GB is moderately distended w/ a thickened appearance of the GB wall and mild pericholecystic edema concerning for cholecystitis. NO radio-opaque stones visualized. Liver, spleen, pancreas and adrenal glands are unremarkable. Multiple R renal cysts including a lobulated upper pole cyst w/ calcified septations. 2 small L renal cysts. Few non-distended loops of fluid-filled small bowel w/ air-fluid levels, likely ileus. No discrete transition point identified. Normal appendix. Diffuse mild thickened appearance of the colon may be 2/2 under distension vs. colitis. ASSESSMENT/PLAN: 77M w/ pmhx of COPD, GERD, EtOH abuse presented to the hospital with 1 day history of abdominal pain and admitted for the treatment of pancolitis and partial small bowel ileus vs obstruction. #Diffuse pancolitis and Small Bowel Ileus: seems to be improving, patient is comfortable and only complaining of mild abdominal pain -continue gentle IV hydration with NS @ 83cc/hr -monitor for bowel movements -maintain NPO status -surgical recommendations noted -continue antibiotic management of pancolitis with levaquin/flagyl -follow micro and stool cultures -patient no longer having diarrhea, no BM #History of EtOH abuse:no signs of withdrawal -if patient shows signs of withdrawal (tremors, diaphoresis, increased abdominal pain/diarrhea), will start detox #Thrombocytopenia: likely 2/2 to significant hx of alcohol abuse, continue to monitor platelet count on this admission -heparin held -no acute intervention indicated at this time #Bilateral renal cysts: saw on CT -will need outpatient follow up #Prophylaxis -SCDs, hold heparin #FEN -NS @ 83 -recheck lytes in AM -NPO #Disposition -full code -monitor on med-surg for improvement, anticipate discharge Thursday or Thursday if patient continues to improve Visit type - Emergency Visit Emergency Visit: No - New Patient This patient is new to me today: Yes Date on this admission: 09/05/18 - Critical Care Critical Care patient: No
[2018-09-05] MEDS: LACTATED RINGERS SOLUTION 1,000 ML/1,000 ML INFUS.BAG IV SCH (10:56)
--- NOTE | 2018-09-05 11:06 | PN ---
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
--- NOTE | 2018-09-05 12:34 | CONS ---
DATE OF CONSULTATION: DATE OF DICTATION: 09/05/2018 REQUESTED BY: Hospitalist Service This is a 77-year-old man admitted with worsening right upper quadrant pain over the course of the last 2 weeks. He has very, very severe pain. He had 4 episodes of diarrhea on the day prior to admission. He has not had any diarrhea since then. He had an ultrasound of the gallbladder that showed moderate distention. He had a CT scan that showed pericholecystic edema. He was given morphine, ertapenem, Tylenol, Mylanta, Pepcid, and normal saline in the emergency room. He currently reports he has no diarrhea whatsoever and his only problem is the persistent right upper quadrant pain. He denies any cough or shortness of breath. Recent travel. He lives in the several months of the year. He was recently there for 2 months. PAST MEDICAL HISTORY: Notable for alcohol use, COPD, and GERD. He has had laser surgery on his lower legs. SOCIAL HISTORY: He stopped smoking 20 years ago. He stopped drinking about a month ago. There is no history of substance use. He has a PENICILLIN allergy. He reports he turns red. No documented outpatient medicines. He does not know his doctor. REVIEW OF SYSTEMS: Notable for the pain. PHYSICAL EXAMINATION: General: He is in no acute distress. Vital Signs: Temperature is 97.9. He has had no fever. Pulse of 67, blood pressure is 138/64, respiratory rate is 20. HEENT: He is normocephalic. His eyes are anicteric. Neck: Supple. Lungs: Clear to auscultation. Heart: Regular rate and rhythm. Abdomen: Notable for right upper quadrant discomfort on palpation. The rest of his abdominal examination is benign. Extremities: Without edema. White count is 3, hemoglobin 10.4, platelets are 79,000. Chemistries are notable for BUN 15 and creatinine 0.9. LFTs are normal. Urinalysis is negative. Blood cultures are negative after [address] scan of his abdomen and pelvis that was read as gallbladder distention with mild wall thickening and pericholecystic fluid. He had mild periportal edema, distended proximal small bowel loops as well as diffuse pancolitis. SUMMARY: This is an elderly man with right upper quadrant pain; CT scan findings of pancolitis; abnormal chest x-ray; eosinophilia, which appears chronic; thrombocytopenia, perhaps related to his ethyl alcohol use; and PENICILLIN allergy. I would suggest continuing the Levaquin and Flagyl at this time. I would get a CT scan of his chest. I would speak with Surgery regarding the right upper quadrant pain to see if he needs further evaluation. I would check a strongyloides antibody. Stool ova and parasites have been ordered as well. Case was discussed at length with the medical driver. DYAN BLACKMON M.D. [id number]
--- NOTE | 2018-09-05 14:45 | CON.GI ---
Consult Consult Specialty:: GI Referred by:: hospitalist - History of Present Illness History of Present Illness: Coverage for GI service 77 y/o male with history of alcohol abuse was admitted because of recurrent diarrhea,non-bloody,recent travel to associated with severe RUQ pain. CT consistent with pancolitis.Patient started with antibiotics yesterday. The diarrhea has resolved but the pain in the ruq is persistent. - Alcohol/Substance Use Hx Alcohol Use: Yes - Smoking History Smoking history: Former smoker Have you smoked in the past 12 months: No If you are a former smoker, when did you quit?: 2013 Home Medications - Allergies Allergies/Adverse Reactions: Allergies Allergy/AdvReac Type Severity Reaction Status Date / Time Penicillins Allergy Unknown Verified 12/04/15 09:57 - Home Medications Home Medications: Ambulatory Orders NK [No Known Home Medication] 12/04/15 Physical Exam-GI Vital Signs: Vital Signs Temperature 97.9 F 09/05/18 09:16 Pulse Rate 62 09/05/18 09:16 Respiratory Rate 20 09/05/18 09:16 Blood Pressure 138/64 09/05/18 09:16 O2 Sat by Pulse Oximetry (%) 95 09/05/18 09:00 Constitutional: Yes: Well Nourished Eyes: Yes: Conjunctiva Clear HENT: Yes: Atraumatic Neck: Yes: Supple Cardiovascular: Yes: Regular Rate and Rhythm Respiratory: Yes: CTA Bilaterally ...Palpate: Yes: Soft, Tenderness (--ruq). No: Firm/Rigid, Guarding, Mass, Pulsatile Mass, Splenomegaly Labs: CBC, BMP 09/05/18 06:00 09/04/18 07:50 INR, PTT INR 1.13 (0.83-1.09) H 09/03/18 15:15 CBCD WBC 3.0 K/mm3 (4.0-10.0) L 09/05/18 06:00 RBC 3.38 M/mm3 (4.00-5.60) L 09/05/18 06:00 Hgb 10.5 GM/dL (11.7-16.9) L 09/05/18 06:00 Hct 30.1 % (35.4-49) L 09/05/18 06:00 MCV 89.0 fl (80-96) 09/05/18 06:00 MCHC 35.0 g/dl (32.0-35.9) 09/05/18 06:00 RDW 14.0 % (11.9-15.9) 09/05/18 06:00 Plt Count 79 K/MM3 (134-434) L 09/05/18 06:00 MPV 13.2 fl (7.5-11.1) H 09/05/18 06:00 CMP Sodium 143 mmol/L (136-145) 09/04/18 07:50 Potassium 4.4 mmol/L (3.5-5.1) 09/04/18 07:50 Chloride 111 mmol/L (98-107) H 09/04/18 07:50 Carbon Dioxide 28 mmol/L (21-32) 09/04/18 07:50 Anion Gap 3 MMOL/L (8-16) L 09/04/18 07:50 BUN 15 mg/dL (7-18) 09/04/18 07:50 Creatinine 0.9 mg/dL (0.55-1.3) 09/04/18 07:50 Creat Clearance w eGFR > 60 (>60) 09/04/18 07:50 Calcium 8.4 mg/dL (8.5-10.1) L 09/04/18 07:50 Total Bilirubin 0.4 mg/dL (0.2-1) 09/04/18 07:50 AST 49 U/L (15-37) H 09/04/18 07:50 ALT 53 U/L (13-61) 09/04/18 07:50 Alkaline Phosphatase 93 U/L (45-117) 09/04/18 07:50 Total Protein 6.4 g/dl (6.4-8.2) 09/04/18 07:50 Albumin 3.1 g/dl (3.4-5.0) L 09/04/18 07:50 Problem List - Problems (1) Infectious diarrhea Assessment/Plan: continue antibiotics Code(s): A09 - INFECTIOUS GASTROENTERITIS AND COLITIS, UNSPECIFIED (2) RUQ abdominal pain Assessment/Plan: r/o gallbladder dyskenisia secondary to chronic cholecystitis R> await Hida scan Code(s): R10.11 - RIGHT UPPER QUADRANT PAIN (3) Pancytopenia Assessment/Plan: etiology unclea r/o seondary to alcohol abuse vs myelodysplasia R> consider hematology consult Code(s): D61.818 - OTHER PANCYTOPENIA
--- NOTE | 2018-09-05 18:10 | PN ---
Teaching Attending Note Name of Resident: Fabricio Powell ATTENDING PHYSICIAN STATEMENT I saw and evaluated the patient. I reviewed the resident's note and discussed the case with the resident. I agree with the resident's findings and plan as documented. SUBJECTIVE: Patient continues to have pain. but improving. OBJECTIVE: Vital Signs Temperature 98.7 F 09/05/18 15:47 Pulse Rate 62 09/05/18 15:47 Respiratory Rate 22 H 09/05/18 15:47 Blood Pressure 144/74 09/05/18 15:47 O2 Sat by Pulse Oximetry (%) 95 09/05/18 09:00 Initial Vital Signs Temp Pulse Resp BP Pulse Ox 97.2 F L 52 L 20 155/64 99 09/03/18 12:35 09/03/18 12:35 09/03/18 12:35 09/03/18 12:35 09/03/18 12:35 GENERAL: AAOx3. Laying comfortably. HEENT: AT/NC. EOMI. Dry mucus membranes. NECK: Normal range of motion, thyromegaly. LUNGS: B/l fine crackles in lower lung bases. Symmetric chest rise. HEART: RRR. Normal S1, S2. No murmurs noted. ABDOMEN: RUQ tenderness to palpation , +Brown sign. MUSCULOSKELETAL: Normal range of motion at all joints EXTREMITIES: 5/5 muscle strenght in u/l b/l extremities. NEUROLOGICAL: Cranial nerves II-XII intact. Normal speech. CBCD WBC 3.0 K/mm3 (4.0-10.0) L 09/05/18 06:00 RBC 3.38 M/mm3 (4.00-5.60) L 09/05/18 06:00 Hgb 10.5 GM/dL (11.7-16.9) L 09/05/18 06:00 Hct 30.1 % (35.4-49) L 09/05/18 06:00 MCV 89.0 fl (80-96) 09/05/18 06:00 MCHC 35.0 g/dl (32.0-35.9) 09/05/18 06:00 RDW 14.0 % (11.9-15.9) 09/05/18 06:00 Plt Count 79 K/MM3 (134-434) L 09/05/18 06:00 MPV 13.2 fl (7.5-11.1) H 09/05/18 06:00 CMP Sodium 143 mmol/L (136-145) 09/04/18 07:50 Potassium 4.4 mmol/L (3.5-5.1) 09/04/18 07:50 Chloride 111 mmol/L (98-107) H 09/04/18 07:50 Carbon Dioxide 28 mmol/L (21-32) 09/04/18 07:50 Anion Gap 3 MMOL/L (8-16) L 09/04/18 07:50 BUN 15 mg/dL (7-18) 09/04/18 07:50 Creatinine 0.9 mg/dL (0.55-1.3) 09/04/18 07:50 Creat Clearance w eGFR > 60 (>60) 09/04/18 07:50 Random Glucose 73 mg/dL (74-106) L 09/04/18 07:50 Calcium 8.4 mg/dL (8.5-10.1) L 09/04/18 07:50 Total Bilirubin 0.4 mg/dL (0.2-1) 09/04/18 07:50 AST 49 U/L (15-37) H 09/04/18 07:50 ALT 53 U/L (13-61) 09/04/18 07:50 Alkaline Phosphatase 93 U/L (45-117) 09/04/18 07:50 Total Protein 6.4 g/dl (6.4-8.2) 09/04/18 07:50 Albumin 3.1 g/dl (3.4-5.0) L 09/04/18 07:50 CARDIAC ENZYMES Creatine Kinase 40 U/L (26-308) 09/03/18 12:45 Troponin I 0.02 ng/ml (0.00-0.05) 09/03/18 12:45 Current Medications Generic Name Dose Route Start Last Admin Trade Name Freq PRN Reason Stop Dose Admin Acetaminophen 1,000 mg 09/04/18 16:13 Ofirmev Injection - IVPB Q8H PRN PAIN LEVEL 4 - 6 Metronidazole 500 mg in 100 mls @ 100 mls/hr 09/04/18 18:00 09/05/18 09:47 Flagyl 500mg Premixed Ivpb - IVPB 100 mls/hr Q8H-IV PATRICK Administration Levofloxacin 500 mg in 100 mls @ 100 mls/hr 09/04/18 16:15 09/05/18 10:56 Levaquin 500 Mg Premixed Ivpb - IVPB 100 mls/hr DAILY PATRICK Administration Protocol Lactated Ringer's 1,000 ml in 1,000 mls @ 83 mls/hr 09/05/18 10:15 09/05/18 10:56 Lactated Ringers Solution IV 09/07/18 22:18 83 mls/hr ASDIR PATRICK Administration Morphine Sulfate 2 mg 09/04/18 07:35 09/04/18 14:56 Morphine Sulfate IVPUSH 2 mg Q4H PRN Administration PAIN LEVEL 7-10 Home Medications Medication Instructions Recorded NK [No Known Home Medication] 12/04/15 Microbiology 09/03/18 13:45 Blood - Peripheral Venous Blood Culture - Preliminary NO GROWTH OBTAINED AFTER 48 HOURS, INCUBATION TO CONTINUE FOR 3 DAYS. 09/03/18 13:45 Blood - Peripheral Venous Blood Culture - Preliminary NO GROWTH OBTAINED AFTER 48 HOURS, INCUBATION TO CONTINUE FOR 3 DAYS. 09/03/18 13:30 Urine - Urine Clean Catch Urine Culture - Final CXR: Interval patchy airspace nodular-like densities in the RUL at site of previously visualized multiple bulla suggestive of infiltrates w/ pleural thickening. Abd U/S: Borderline over-distended GB w/o intraluminal stones or sonographic evidence of acute cholecystitis. Multiple R renal cysts/parapelvic cysts w/ the largest measuring 5.3 x 3.9 cm. Splenomegaly. CTAP w/ IV contrast: ([facility] read) GB is moderately distended w/ a thickened appearance of the GB wall and mild pericholecystic edema concerning for cholecystitis. NO radio-opaque stones visualized. Liver, spleen, pancreas and adrenal glands are unremarkable. Multiple R renal cysts including a lobulated upper pole cyst w/ calcified septations. 2 small L renal cysts. Few non-distended loops of fluid-filled small bowel w/ air-fluid levels, likely ileus. No discrete transition point identified. Normal appendix. Diffuse mild thickened appearance of the colon may be 2/2 under distension vs. colitis. ASSESSMENT/PLAN: 77M w/ pmhx of COPD, GERD, EtOH abuse presented to the hospital with 1 day history of abdominal pain. # Acute pancolitis on IV antibiotics levaquin/flagyl IV, GI and ID consult appreciated, surgical consult appreciated. # Eosinophilia chronic: stool ova and parasite is pending, ordered strongyloides antibody, pending #Diarrhea; Pt had 4 episodes of watery light brown diarrhea yesterday and also just arrived from the [place] recently. -Due to eosinophilia and recent travel to the [facility], stool culture /ova & parasites pnding , follow the cx; follow strongyloides antibody. #RUQ cannot r/o acute cholecystitis ,continue IV antibiotic #Hx of EtOH abuse; Recently quit heavy drinking about 1 month ago. stable. #Thrombocytopenia; likely due to alcohol abuse; hold heparin for now. #Bilateral multiple renal cysts , nephro consult appreciated. #Ppx; SCDs, hold heparin
--- NOTE | 2018-09-05 18:32 | PN ---
Progress Note (short form) - Note Progress Note: covering dr carey multiple bilateral renal cysts mild azotemia/ urine is clear no sediment gfr >60 Prerenal azotemia on admission no hematuria - unlikely ruptured renal cysts symptoms more likely from GI process Current Medications Acetaminophen (Ofirmev Injection -) 1,000 mg IVPB Q8H PRN PRN Reason: PAIN LEVEL 4 - 6 Metronidazole (Flagyl 500mg Premixed Ivpb -) 500 mg in 100 mls @ 100 mls/hr IVPB Q8H-IV PATRICK Last Admin: 09/05/18 09:47 Dose: 100 mls/hr Levofloxacin (Levaquin 500 Mg Premixed Ivpb -) 500 mg in 100 mls @ 100 mls/hr IVPB DAILY PATRICK; Protocol Last Admin: 09/05/18 10:56 Dose: 100 mls/hr Lactated Ringer's (Lactated Ringers Solution) 1,000 ml in 1,000 mls @ 83 mls/ hr IV ASDIR PATRICK Stop: 09/07/18 22:18 Last Admin: 09/05/18 10:56 Dose: 83 mls/hr Morphine Sulfate (Morphine Sulfate) 2 mg IVPUSH Q4H PRN PRN Reason: PAIN LEVEL 7-10 Last Admin: 09/04/18 14:56 Dose: 2 mg Last Vital Signs Temp Pulse Resp BP Pulse Ox 98.7 F 62 22 H 144/74 95 09/05/18 15:47 09/05/18 15:47 09/05/18 15:47 09/05/18 15:47 09/05/18 09:00 Lungs clear Heart reg rate Abd soft nontender Ext no edema CBC, BMP 09/05/18 06:00 09/04/18 07:50 IMP- cystic renal disease htn prerenal azotemia on admission abd pain?likely GI process Plan- continue to monitor renal function and u/a r/o hematuria from ruptured cyst
[2018-09-05] MEDS: MORPHINE SULFATE 2 MG/ML VIAL IVPUSH PRN (23:00)
[2018-09-06 06:20] LABS: HEMATOCRIT 30.9 % (35.4-49); HEMOGLOBIN 10.7 GM/dL (11.7-16.9); MCH 30.7 pg (25.7-33.7); MCHC 34.8 g/dl (32.0-35.9); MEAN CELL VOLUME 88.3 fl (80-96); MEAN PLT VOLUME 11.7 fl (7.5-11.1); PLATELET COUNT 81 K/MM3 (134-434); WHITE BLOOD COUNT 3.3 K/mm3 (4.0-10.0)
[2018-09-06 06:44] LABS: ALBUMIN 3.1 g/dl (3.4-5.0); ALK PHOS 89 U/L (45-117); ANION GAP 7 MMOL/L (8-16); BILIRUBIN,TOTAL 0.4 mg/dL (0.2-1); BLOOD UREA NITROGEN 16 mg/dL (7-18); CALCIUM 8.4 mg/dL (8.5-10.1); CHLORIDE 108 mmol/L (98-107); CO2 27 mmol/L (21-32); CREATININE 0.9 mg/dL (0.55-1.3); GLUCOSE,RANDOM 62 mg/dL (74-106); PHOSPHOROUS 2.9 mg/dL (2.5-4.9); POTASSIUM 4.4 mmol/L (3.5-5.1); SGOT/AST 23 U/L (15-37); SGPT/ALT 30 U/L (13-61); SODIUM 142 mmol/L (136-145); TOT PROT 6.3 g/dl (6.4-8.2)
--- NOTE | 2018-09-06 09:47 | PN ---
Progress Note (short form) - Note Progress Note: Pt seen and examined. Reports continued RUQ pain this AM. Is NPO, Reports no flatus. Had Bm x 2 yesterday (diarrhea). Urinating without difficulty. Denies cp /sob, n/v/d. Vital Signs Temp 97.8 F 09/06/18 05:52 Pulse 70 09/06/18 05:52 Resp 20 09/06/18 05:52 BP 119/56 L 09/06/18 05:52 Pulse Ox 95 09/05/18 21:00 Intake & Output 09/05/18 09/05/18 09/06/18 11:59 23:59 11:59 Intake Total 1096 1100 0 Output Total 400 Balance 1096 1100 -400 Intake: IV 996 800 NS 800 Normal Saline - 1,000 ml 996 @ 83 mls/hr IV ASDIR PATRICK Rx#:[id number] IVPB 100 300 Oral 0 0 Output: Urine 400 Void 400 Other: Voiding Method Urinal Toilet # Unmeasured Voids Void 1 3 Bowel Movement No No Yes # Bowel Movements 3 CBC, BMP 09/06/18 05:55 09/06/18 05:55 Gen: awake, alert, nad Resp: unlabored Abdo: soft, nondistended, + ttp in ruq. No rebound/guarding A/P: 77 [place]-speaking M w/ pmhx COPD, GERD, EtOH abuse admitted 09/03 with complaints of RUQ abdominal pain. Afebrile, vss. Planned for HIDA scan today NPO/IVF F/U stool cultures d/w attending Dr Gregorio
--- NOTE | 2018-09-06 11:07 | PN ---
Progress Note (short form) - Note Progress Note: Patient off the floor, presumably at [facility], unable to examine Vital Signs Temp 97.8 F 09/06/18 05:52 Pulse 70 09/06/18 05:52 Resp 20 09/06/18 05:52 BP 119/56 L 09/06/18 05:52 Pulse Ox 95 09/05/18 21:00 CBC, BMP 09/06/18 05:55 09/06/18 05:55 Hepatic Panel Total Bilirubin 0.4 mg/dL (0.2-1) 09/06/18 05:55 AST 23 U/L (15-37) 09/06/18 05:55 ALT 30 U/L (13-61) 09/06/18 05:55 Alkaline Phosphatase 89 U/L (45-117) 09/06/18 05:55 Albumin 3.1 g/dl (3.4-5.0) L 09/06/18 05:55 Impression is that of likely infectious colitis, on antibiotics Persistent RUQ pain with gallbladder distension and wall thickening on prior imaging - await [facility] scan
--- NOTE | 2018-09-06 11:12 | CON.PULM ---
Consult Consult Specialty:: PULM/CCM Referred by:: Hospitalist Reason for Consultation:: abnormal CT - History of Present Illness Chief Complaint: RUQ pain History of Present Illness: 77 M, COPD due to previous smoking history, GERD, and prior ETOH abuse. Admitted via the ER due to severe (9/10) RUQ and epigastric pain of 1 day duration. The pain him out of sleep and was associated with 4 episodes of watery light brown diarrhea. He does report some chronic cough with thick, scant yellowish phlegm. There has been some increase in his cough/sputum recently. No hemoptysis or night sweats. Does not appear that he has had previous PFTs. Now in Radiology awaiting HIDA scan. CT: apical predominant emphysema/bullous disease / biapical pleural calcifications Left > right / chronic appearing loculated effusions with more acute smaller effusions at the bases - History Source History Provided By: Patient, Medical Record Limitations to Obtaining History: Language Barrier - Past Medical History Pulmonary: Yes: Bronchitis, COPD, Pneumonia. No: Previously Intubated, Sleep Apnea - Alcohol/Substance Use Hx Alcohol Use: Yes - Smoking History Smoking history: Former smoker Have you smoked in the past 12 months: No If you are a former smoker, when did you quit?: 2013 Home Medications - Allergies Allergies/Adverse Reactions: Allergies Allergy/AdvReac Type Severity Reaction Status Date / Time Penicillins Allergy Unknown Verified 12/04/15 09:57 - Home Medications Home Medications: Ambulatory Orders NK [No Known Home Medication] 12/04/15 Review of Systems - Review of Systems Constitutional: reports: Malaise. denies: Chills, Fever, Night Sweats Eyes: reports: No Symptoms HENT: reports: No Symptoms Neck: reports: No Symptoms Cardiovascular: reports: Shortness of Breath. denies: Chest Pain, Edema, Palpitations Respiratory: reports: Cough, SOB. denies: Hemoptysis, Snoring, Wheezing Gastrointestinal: reports: Abdominal Pain, Diarrhea, Indigestion, Nausea, Vomiting. denies: Rectal Bleeding, Vomiting Blood Genitourinary: reports: No Symptoms Breasts: reports: No Symptoms Reported Musculoskeletal: reports: No Symptoms Integumentary: reports: No Symptoms Neurological: reports: No Symptoms Endocrine: reports: No Symptoms Hematology/Lymphatic: reports: No Symptoms Psychiatric: reports: No Symptoms Physical Exam Vital Sings: Vital Signs Temperature 97.8 F 09/06/18 05:52 Pulse Rate 70 09/06/18 05:52 Respiratory Rate 20 09/06/18 05:52 Blood Pressure 119/56 L 09/06/18 05:52 O2 Sat by Pulse Oximetry (%) 95 09/05/18 21:00 Constitutional: Yes: No Distress, Thin Eyes: Yes: Conjunctiva Clear, EOM Intact HENT: Yes: Atraumatic, Normocephalic Neck: Yes: Supple, Trachea Midline Cardiovascular: Yes: Regular Rate and Rhythm Respiratory: Yes: Cough, Diminished, Rhonchi. No: Accessory Muscle Use, Rales, SOB, SOB on Exertion, Stridor, Tachypnea, Wheezes ...Inspection: Yes: WNL ...Clubbing: No Gastrointestinal: Yes: Normal Bowel Sounds, Soft, Tenderness Renal/: Yes: WNL Musculoskeletal: Yes: WNL Extremities: Yes: WNL Edema: No Peripheral Pulses WNL: Yes Integumentary: Yes: WNL Neurological: Yes: WNL, Alert, Oriented ...Motor Strength: WNL Psychiatric: Yes: WNL, Alert, Oriented Labs: CBC, BMP 09/06/18 05:55 09/06/18 05:55 Imaging - Results Chest X-ray: Report Reviewed, Image Reviewed Cat Scan: Image Reviewed Problem List - Problems (1) Emphysema of lung Code(s): J43.9 - EMPHYSEMA, UNSPECIFIED (2) Pleural calcification Code(s): J94.8 - OTHER SPECIFIED PLEURAL CONDITIONS (3) Pleural effusion Code(s): J90 - PLEURAL EFFUSION, NOT ELSEWHERE CLASSIFIED (4) Abdominal pain Code(s): R10.9 - UNSPECIFIED ABDOMINAL PAIN Qualifiers: Abdominal location: right upper quadrant Qualified Code(s): R10.11 - Right upper quadrant pain (5) Abnormal CXR Code(s): R93.89 - ABNORMAL FINDINGS ON DX IMAGING OF OTH BODY STRUCTURES (6) Colitis Code(s): K52.9 - NONINFECTIVE GASTROENTERITIS AND COLITIS, UNSPECIFIED (7) Pancytopenia Code(s): D61.818 - OTHER PANCYTOPENIA (8) Penicillin allergy Code(s): Z88.0 - ALLERGY STATUS TO PENICILLIN (9) RUQ abdominal pain Code(s): R10.11 - RIGHT UPPER QUADRANT PAIN (10) COPD (chronic obstructive pulmonary disease) Code(s): J44.9 - CHRONIC OBSTRUCTIVE PULMONARY DISEASE, UNSPECIFIED Assessment/Plan Symptoms consistent with chronic bronchitis. Do not suspect overt pulmonary infectious process. Need to clarify PTB status. Will order Quant Gold and sputum. Do not suspect active disease at this time. O2 as needed ABX per ID for GI process GI workup ongoing BD TX PRN No indication for systemic steroids PFTs after discharge No smoking Will follow Thank you. Dr Armijo
[2018-09-06] MEDS ORDERED: ALBUTEROL SO4 0.083% IH SOL 2.5 MG/3 ML VIAL.NEB. NEB PRN (11:39)
[2018-09-06] MEDS: LACTATED RINGERS SOLUTION 1,000 ML/1,000 ML INFUS.BAG IV SCH ×2 (12:01→18:54)
--- NOTE | 2018-09-06 13:45 | PN ---
Progress Note, Physician History of Present Illness: Pt seen and examined at bedside. He is awake and alert. He denies dysuria or hematuria. - Current Medication List Current Medications: Active Medications Acetaminophen (Ofirmev Injection -) 1,000 mg IVPB Q8H PRN PRN Reason: PAIN LEVEL 4 - 6 Albuterol Sulfate (Ventolin 0.083% Nebulizer Soln -) 1 amp NEB Q4H PRN PRN Reason: SHORT OF BREATH/WHEEZING Metronidazole (Flagyl 500mg Premixed Ivpb -) 500 mg in 100 mls @ 100 mls/hr IVPB Q8H-IV PATRICK Last Admin: 09/06/18 11:16 Dose: 100 mls/hr Levofloxacin (Levaquin 500 Mg Premixed Ivpb -) 500 mg in 100 mls @ 100 mls/hr IVPB DAILY PATRICK; Protocol Last Admin: 09/06/18 11:10 Dose: 100 mls/hr Lactated Ringer's (Lactated Ringers Solution) 1,000 ml in 1,000 mls @ 83 mls/ hr IV ASDIR PATRICK Stop: 09/07/18 22:18 Last Admin: 09/06/18 12:01 Dose: Not Given Morphine Sulfate (Morphine Sulfate) 2 mg IVPUSH Q4H PRN PRN Reason: PAIN LEVEL 7-10 Last Admin: 09/05/18 23:00 Dose: 2 mg - Objective Vital Signs: Vital Signs Temperature 97.4 F L 09/06/18 10:00 Pulse Rate 62 09/06/18 10:00 Respiratory Rate 20 09/06/18 10:00 Blood Pressure 164/70 09/06/18 10:00 O2 Sat by Pulse Oximetry (%) 95 09/05/18 21:00 Constitutional: Yes: Calm Eyes: Yes: Conjunctiva Clear HENT: Yes: Atraumatic Cardiovascular: Yes: S1, S2 Respiratory: Yes: CTA Bilaterally Gastrointestinal: Yes: Soft, Tenderness, Other (ruq tenderness) Genitourinary: Yes: WNL Musculoskeletal: Yes: WNL Edema: No Neurological: Yes: Oriented Psychiatric: Yes: Oriented Labs: CBC, BMP 09/06/18 05:55 09/06/18 05:55 INR, PTT INR 1.13 (0.83-1.09) H 09/03/18 15:15 Assessment/Plan Current Medications Generic Name Dose Route Start Last Admin Trade Name Freq PRN Reason Stop Dose Admin Acetaminophen 1,000 mg 09/04/18 16:13 Ofirmev Injection - IVPB Q8H PRN PAIN LEVEL 4 - 6 Albuterol Sulfate 1 amp 09/06/18 11:39 Ventolin 0.083% Nebulizer Soln - NEB Q4H PRN SHORT OF BREATH/WHEEZING Metronidazole 500 mg in 100 mls @ 100 mls/hr 09/04/18 18:00 09/06/18 11:16 Flagyl 500mg Premixed Ivpb - IVPB 100 mls/hr Q8H-IV PATRICK Administration Levofloxacin 500 mg in 100 mls @ 100 mls/hr 09/04/18 16:15 09/06/18 11:10 Levaquin 500 Mg Premixed Ivpb - IVPB 100 mls/hr DAILY PATRICK Administration Protocol Lactated Ringer's 1,000 ml in 1,000 mls @ 83 mls/hr 09/05/18 10:15 09/06/18 12:01 Lactated Ringers Solution IV 09/07/18 22:18 Not Given ASDIR PATRICK Morphine Sulfate 2 mg 09/04/18 07:35 09/05/18 23:00 Morphine Sulfate IVPUSH 2 mg Q4H PRN Administration PAIN LEVEL 7-10 Laboratory Tests 09/05/18 06:00 Eosinophils % 13.4 H Impression 1. renal cysts 2. possible complex cyst 3. abd pain 4. eosinophilia 5. HTN 6. dehydration Plan - renal function stabilizing - cysts will need to be followed - will need urology follow up as well - monitor renal function on fluids - GI workup - will follow Dr Chaidez
--- NOTE | 2018-09-06 13:53 | PN ---
Teaching Attending Note Name of Resident: Shy Louise ATTENDING PHYSICIAN STATEMENT I saw and evaluated the patient. I reviewed the resident's note and discussed the case with the resident. I agree with the resident's findings and plan as documented. SUBJECTIVE: Continues to have RUQ pain. OBJECTIVE: Vital Signs Temperature 97.4 F L 09/06/18 10:00 Pulse Rate 62 09/06/18 10:00 Respiratory Rate 20 09/06/18 10:00 Blood Pressure 164/70 09/06/18 10:00 O2 Sat by Pulse Oximetry (%) 95 09/05/18 21:00 GENERAL: AAOx3. Laying comfortably. HEENT: AT/NC. EOMI. Dry mucus membranes. NECK: Normal range of motion, thyromegaly. LUNGS: B/l fine crackles in lower lung bases. Symmetric chest rise. HEART: RRR. Normal S1, S2. No murmurs noted. ABDOMEN: RUQ severe tenderness to palpation , positive for Brown sign. MUSCULOSKELETAL: Normal range of motion at all joints EXTREMITIES: 5/5 muscle strenght in u/l b/l extremities. NEUROLOGICAL: Cranial nerves II-XII intact. Normal speech. CBCD WBC 3.3 K/mm3 (4.0-10.0) L 09/06/18 05:55 RBC 3.50 M/mm3 (4.00-5.60) L 09/06/18 05:55 Hgb 10.7 GM/dL (11.7-16.9) L 09/06/18 05:55 Hct 30.9 % (35.4-49) L 09/06/18 05:55 MCV 88.3 fl (80-96) 09/06/18 05:55 MCHC 34.8 g/dl (32.0-35.9) 09/06/18 05:55 RDW 14.0 % (11.9-15.9) 09/06/18 05:55 Plt Count 81 K/MM3 (134-434) L 09/06/18 05:55 MPV 11.7 fl (7.5-11.1) H D 09/06/18 05:55 CMP Sodium 142 mmol/L (136-145) 09/06/18 05:55 Potassium 4.4 mmol/L (3.5-5.1) 09/06/18 05:55 Chloride 108 mmol/L (98-107) H 09/06/18 05:55 Carbon Dioxide 27 mmol/L (21-32) 09/06/18 05:55 Anion Gap 7 MMOL/L (8-16) L 09/06/18 05:55 BUN 16 mg/dL (7-18) 09/06/18 05:55 Creatinine 0.9 mg/dL (0.55-1.3) 09/06/18 05:55 Creat Clearance w eGFR > 60 (>60) 09/06/18 05:55 Random Glucose 62 mg/dL (74-106) L 09/06/18 05:55 Calcium 8.4 mg/dL (8.5-10.1) L 09/06/18 05:55 Total Bilirubin 0.4 mg/dL (0.2-1) 09/06/18 05:55 AST 23 U/L (15-37) 09/06/18 05:55 ALT 30 U/L (13-61) 09/06/18 05:55 Alkaline Phosphatase 89 U/L (45-117) 09/06/18 05:55 Total Protein 6.3 g/dl (6.4-8.2) L 09/06/18 05:55 Albumin 3.1 g/dl (3.4-5.0) L 09/06/18 05:55 CARDIAC ENZYMES Creatine Kinase 40 U/L (26-308) 09/03/18 12:45 Troponin I 0.02 ng/ml (0.00-0.05) 09/03/18 12:45 Current Medications Generic Name Dose Route Start Last Admin Trade Name Anthony PRN Reason Stop Dose Admin Acetaminophen 1,000 mg 09/04/18 16:13 Ofirmev Injection - IVPB Q8H PRN PAIN LEVEL 4 - 6 Albuterol Sulfate 1 amp 09/06/18 11:39 Ventolin 0.083% Nebulizer Soln - NEB Q4H PRN SHORT OF BREATH/WHEEZING Metronidazole 500 mg in 100 mls @ 100 mls/hr 09/04/18 18:00 09/06/18 11:16 Flagyl 500mg Premixed Ivpb - IVPB 100 mls/hr Q8H-IV PATRICK Administration Levofloxacin 500 mg in 100 mls @ 100 mls/hr 09/04/18 16:15 09/06/18 11:10 Levaquin 500 Mg Premixed Ivpb - IVPB 100 mls/hr DAILY PATRICK Administration Protocol Lactated Ringer's 1,000 ml in 1,000 mls @ 83 mls/hr 09/05/18 10:15 09/06/18 12:01 Lactated Ringers Solution IV 09/07/18 22:18 Not Given ASDIR PATRICK Morphine Sulfate 2 mg 09/04/18 07:35 09/05/18 23:00 Morphine Sulfate IVPUSH 2 mg Q4H PRN Administration PAIN LEVEL 7-10 09/03/18 13:45 Blood - Peripheral Venous Blood Culture - Preliminary NO GROWTH OBTAINED AFTER 48 HOURS, INCUBATION TO CONTINUE FOR 3 DAYS. 09/03/18 13:45 Blood - Peripheral Venous Blood Culture - Preliminary NO GROWTH OBTAINED AFTER 48 HOURS, INCUBATION TO CONTINUE FOR 3 DAYS. 09/03/18 13:30 Urine - Urine Clean Catch Urine Culture - Final CXR: Interval patchy airspace nodular-like densities in the RUL at site of previously visualized multiple bulla suggestive of infiltrates w/ pleural thickening. Abd U/S: Borderline over-distended GB w/o intraluminal stones or sonographic evidence of acute cholecystitis. Multiple R renal cysts/parapelvic cysts w/ the largest measuring 5.3 x 3.9 cm. Splenomegaly. CTAP w/ IV contrast: ([facility] read) GB is moderately distended w/ a thickened appearance of the GB wall and mild pericholecystic edema concerning for cholecystitis. NO radio-opaque stones visualized. Liver, spleen, pancreas and adrenal glands are unremarkable. Multiple R renal cysts including a lobulated upper pole cyst w/ calcified septations. 2 small L renal cysts. Few non-distended loops of fluid-filled small bowel w/ air-fluid levels, likely ileus. No discrete transition point identified. Normal appendix. Diffuse mild thickened appearance of the colon may be 2/2 under distension vs. colitis. ASSESSMENT/PLAN: 77M w/ pmhx of COPD, GERD, EtOH abuse presented to the hospital with 1 day history of abdominal pain. # Acute pancolitis on IV antibiotics levaquin/flagyl IV, GI and ID consult appreciated, surgical consult appreciated. # Eosinophilia chronic: stool ova and parasite is pending, ordered strongyloides antibody, pending #Diarrhea; Pt had 4 episodes of watery light brown diarrhea which is improving with recent travel hx from the [place] recently. -Due to eosinophilia and recent travel to the [place], stool culture /ova & parasites pending , follow the cx; follow strongyloides antibody. #RUQ; Hida scan positive for acute cholecystitis ,continue IV antibiotic #Hx of EtOH abuse; Recently quit heavy drinking about 1 month ago. stable. #Thrombocytopenia; likely due to alcohol abuse; hold heparin for now. #Bilateral multiple renal cysts , nephro consult appreciated. #Ppx; SCDs, hold heparin Discussed with Dr. Gregorio , surgery for Thursday
--- NOTE | 2018-09-06 15:32 | PN ---
Progress Note (short form) - Note Progress Note: Attending Surgeon For lap rosmery 09/08/18; full note to follow. Sharan Gregorio MD FACS
--- NOTE | 2018-09-06 15:36 | PN ---
Progress Note (short form) - Note Progress Note: Iresting comfortable continued ruq pain no fevers no cough denies weight loss or night sweats no history of tb consents to HIV testing (all thru interpretor) Vital Signs Period Temp Pulse Resp BP Sys/Billy Pulse Ox Last 24 Hr 97.2 F-98.7 F 62-70 20-22 119-164/56-80 95 cor-rrr lungs clear abd soft, RUQ pain to palpation ext no edema ct chest- bilateral severe ILD and COPD CBC, BMP 09/06/18 05:55 09/06/18 05:55 hida scan c/w acute cholycystitis imp/reccd 77 yo man admitted with worsening RUQ pain for last 2 weeks some diarrhea before admission that has resolved no BM since Thursday no fevers pen allergy RUQ pain- ?cholycycstitis, would ask surgery to re-evaluate- continue levaquin/ flagyl rose colitis/-no diarrhea- on levaquin/flagyl severe copd/ild eosinophilia-chronic- check strongyloides antibody, stool ova and parasites have been ordered willl get HIV testing pen allergy Problem List - Problems (1) Abdominal pain Code(s): R10.9 - UNSPECIFIED ABDOMINAL PAIN Qualifiers: Abdominal location: right upper quadrant Qualified Code(s): R10.11 - Right upper quadrant pain (2) Colitis Code(s): K52.9 - NONINFECTIVE GASTROENTERITIS AND COLITIS, UNSPECIFIED (3) Abnormal CXR Code(s): R93.89 - ABNORMAL FINDINGS ON DX IMAGING OF OTH BODY STRUCTURES (4) Eosinophilia Code(s): D72.1 - EOSINOPHILIA (5) Penicillin allergy Code(s): Z88.0 - ALLERGY STATUS TO PENICILLIN
--- NOTE | 2018-09-06 15:46 | PN ---
Physical Exam: SUBJECTIVE: Patient seen and examined at bedside. NO acute events overnight. Denies n/v, chest pain, sob. Still with RUQ pain. OBJECTIVE: Last Vital Signs Temp Pulse Resp BP Pulse Ox 97.9 F 60 20 148/72 95 09/06/18 14:25 09/06/18 14:25 09/06/18 14:25 09/06/18 14:25 09/05/18 21:00 GENERAL: AAOx3. Laying comfortably. HEENT: AT/NC. EOMI. Dry mucus membranes. NECK: Normal range of motion, thyromegaly. LUNGS: B/l fine crackles in lower lung bases. Symmetric chest rise. HEART: RRR. Normal S1, S2. No murmurs noted. ABDOMEN: Soft, tender to palpation in RUQ. +Brown sign. MUSCULOSKELETAL: Normal range of motion at all joints EXTREMITIES: 5/5 muscle strenght in u/l b/l extremities. NEUROLOGICAL: Cranial nerves II-XII intact. Normal speech. CBC, BMP 09/06/18 05:55 09/06/18 05:55 Active Medications Acetaminophen (Ofirmev Injection -) 1,000 mg IVPB Q8H PRN PRN Reason: PAIN LEVEL 4 - 6 Albuterol Sulfate (Ventolin 0.083% Nebulizer Soln -) 1 amp NEB Q4H PRN PRN Reason: SHORT OF BREATH/WHEEZING Metronidazole (Flagyl 500mg Premixed Ivpb -) 500 mg in 100 mls @ 100 mls/hr IVPB Q8H-IV PATRICK Last Admin: 09/06/18 11:16 Dose: 100 mls/hr Levofloxacin (Levaquin 500 Mg Premixed Ivpb -) 500 mg in 100 mls @ 100 mls/hr IVPB DAILY PATRICK; Protocol Last Admin: 09/06/18 11:10 Dose: 100 mls/hr Lactated Ringer's (Lactated Ringers Solution) 1,000 ml in 1,000 mls @ 83 mls/ hr IV ASDIR PATRICK Stop: 09/07/18 22:18 Last Admin: 09/06/18 12:01 Dose: Not Given Morphine Sulfate (Morphine Sulfate) 2 mg IVPUSH Q4H PRN PRN Reason: PAIN LEVEL 7-10 Last Admin: 09/05/18 23:00 Dose: 2 mg IMAGING * CXR: Interval patchy airspace nodular-like densities in the RUL at site of previously visualized multiple bulla suggestive of infiltrates w/ pleural thickening. * Abd U/S: Borderline over-distended GB w/o intraluminal stones or sonographic evidence of acute cholecystitis. Multiple R renal cysts/parapelvic cysts w/ the largest measuring 5.3 x 3.9 cm. Splenomegaly. * CTAP w/ IV contrast: apical predominant emphysema/bullous disease / biapical pleural calcifications Left > right / chronic appearing loculated effusions with more acute smaller effusions at the bases * HIDA scan: No filling of GB after 2 hours of imaging suggestive of cystic duct obstruction and acute rosmery in R clinical setting. ASSESSMENT/PLAN: 77M w/ pmhx of COPD, GERD, EtOH abuse presented to the hospital with 1 day history of abdominal pain and admitted for the treatment of pancolitis and partial small bowel ileus vs obstruction. #Diffuse pancolitis and Small Bowel Ileus: seems to be improving, patient is comfortable and only complaining of mild abdominal pain -continue gentle IV hydration with NS @ 83cc/hr -monitor for bowel movements -Per GI, lap rosmery schedule 09/08/18. Keep NPO. IVFs -continue antibiotic management of pancolitis with levaquin 500 QD IVPB/flagyl 500 Q8H IVPB -Stool and micro cultures, stool and ova parasites, strongyloides Ab pending -patient no longer having diarrhea, no BM -Morphine 2 Q4H as needed for pain #Pleural calcifications/Effusions -Per pulm, pt's symptoms are likely consistent with chronic bronchitis, no overt infectious process suspected; PTB to be clarified. Quant Gold and sputum ordered, active disease not suspected at this time. PFTs after d/c as outpatient. -Ventolin QID #History of EtOH abuse:no signs of withdrawal -if patient shows signs of withdrawal (tremors, diaphoresis, increased abdominal pain/diarrhea), cont detox #Thrombocytopenia: likely 2/2 to significant hx of alcohol abuse, continue to monitor platelet count on this admission -Heparin held -no acute intervention indicated at this time #Eosinophilia -Pt has increasing eosinphilia now 13.4. There is a concern for possible parasitic infection given pt's recent travel to , and GI symptoms. Await stool cultures/ova and parasites/Strongyloides Ab; HIV testing ordered per ID #Bilateral renal cysts: saw on CT -will need nephro and uro follow up #Prophylaxis -SCDs, hold heparin #FEN -NS @ 83 -recheck lytes in AM -NPO except meds #Disposition -full code -alejandro botello scheduled for 09/08/18 Visit type - Emergency Visit Emergency Visit: Yes ED Registration Date: 09/03/18 Care time: The patient presented to the Emergency Department on the above date and was hospitalized for further evaluation of their emergent condition. - New Patient This patient is new to me today: No - Critical Care Critical Care patient: No
--- NOTE | 2018-09-06 19:13 | PN ---
Teaching Attending Note Name of Resident: Shy Louise ATTENDING PHYSICIAN STATEMENT I saw and evaluated the patient. I reviewed the resident's note and discussed the case with the resident. I agree with the resident's findings and plan as documented. SUBJECTIVE: OBJECTIVE: Vital Signs Temperature 97.9 F 09/06/18 14:25 Pulse Rate 60 09/06/18 14:25 Respiratory Rate 20 09/06/18 14:25 Blood Pressure 148/72 09/06/18 14:25 O2 Sat by Pulse Oximetry (%) 95 09/06/18 09:00 CBCD WBC 3.3 K/mm3 (4.0-10.0) L 09/06/18 05:55 RBC 3.50 M/mm3 (4.00-5.60) L 09/06/18 05:55 Hgb 10.7 GM/dL (11.7-16.9) L 09/06/18 05:55 Hct 30.9 % (35.4-49) L 09/06/18 05:55 MCV 88.3 fl (80-96) 09/06/18 05:55 MCHC 34.8 g/dl (32.0-35.9) 09/06/18 05:55 RDW 14.0 % (11.9-15.9) 09/06/18 05:55 Plt Count 81 K/MM3 (134-434) L 09/06/18 05:55 MPV 11.7 fl (7.5-11.1) H D 09/06/18 05:55 CMP Sodium 142 mmol/L (136-145) 09/06/18 05:55 Potassium 4.4 mmol/L (3.5-5.1) 09/06/18 05:55 Chloride 108 mmol/L (98-107) H 09/06/18 05:55 Carbon Dioxide 27 mmol/L (21-32) 09/06/18 05:55 Anion Gap 7 MMOL/L (8-16) L 09/06/18 05:55 BUN 16 mg/dL (7-18) 09/06/18 05:55 Creatinine 0.9 mg/dL (0.55-1.3) 09/06/18 05:55 Creat Clearance w eGFR > 60 (>60) 09/06/18 05:55 Random Glucose 62 mg/dL (74-106) L 09/06/18 05:55 Calcium 8.4 mg/dL (8.5-10.1) L 09/06/18 05:55 Total Bilirubin 0.4 mg/dL (0.2-1) 09/06/18 05:55 AST 23 U/L (15-37) 09/06/18 05:55 ALT 30 U/L (13-61) 09/06/18 05:55 Alkaline Phosphatase 89 U/L (45-117) 09/06/18 05:55 Total Protein 6.3 g/dl (6.4-8.2) L 09/06/18 05:55 Albumin 3.1 g/dl (3.4-5.0) L 09/06/18 05:55 CARDIAC ENZYMES Creatine Kinase 40 U/L (26-308) 09/03/18 12:45 Troponin I 0.02 ng/ml (0.00-0.05) 09/03/18 12:45 Current Medications Generic Name Dose Route Start Last Admin Trade Name Anthony PRN Reason Stop Dose Admin Acetaminophen 1,000 mg 09/04/18 16:13 Ofirmev Injection - IVPB Q8H PRN PAIN LEVEL 4 - 6 Albuterol Sulfate 1 amp 09/06/18 11:39 Ventolin 0.083% Nebulizer Soln - NEB Q4H PRN SHORT OF BREATH/WHEEZING Metronidazole 500 mg in 100 mls @ 100 mls/hr 09/04/18 18:00 09/06/18 18:22 Flagyl 500mg Premixed Ivpb - IVPB 100 mls/hr Q8H-IV PATRICK Administration Levofloxacin 500 mg in 100 mls @ 100 mls/hr 09/04/18 16:15 09/06/18 11:10 Levaquin 500 Mg Premixed Ivpb - IVPB 100 mls/hr DAILY PATRICK Administration Protocol Lactated Ringer's 1,000 ml in 1,000 mls @ 83 mls/hr 09/05/18 10:15 09/06/18 18:54 Lactated Ringers Solution IV 09/07/18 22:18 83 mls/hr ASDIR PATRICK Administration Morphine Sulfate 2 mg 09/04/18 07:35 09/05/18 23:00 Morphine Sulfate IVPUSH 2 mg Q4H PRN Administration PAIN LEVEL 7-10 Home Medications Medication Instructions Recorded NK [No Known Home Medication] 12/04/15 ASSESSMENT AND PLAN:
--- NOTE | 2018-09-06 20:23 | CONSULT ---
Consult - text type - Consultation Consultation Note: 77 Greek-speaking male w/ pmhx of COPD, GERD, EtOH abuse presented to the hospital with complaints of RUQ abdominal pain . Admits to nausea, intermittent headaches, and pain all over the body when his abdominal pain intensifies. He denies chest pain, sob, urinary/bowel symptoms, blood in urine/stool. (1) Abd U/S showed overdistended GB, CTAP showed GB is moderately distended w/ a thickened appearance of the GB wall and mild pericholecystic edema concerning for cholecystitis PAST MEDICAL HISTORY: EtOH abuse COPD GERD PAST SURGICAL HISTORY: laser surgery on b/l LE Social History: Smoking: former smoker, stopped 20 years ago Alcohol: stopped drinking heavily about 1 month ago, used to drink 3 times a week about 1 bottle of liquor; last drink, however was this past Thursday (1 beer) Drugs: Denies Family History: Allergies Penicillins Allergy (Unknown, Verified 12/04/15 09:57) HOME MEDICATIONS: Home Medications Medication Instructions Recorded NK [No Known Home Medication] 12/04/15 PHYSICAL EXAMINATION Last Vital Signs Temp Pulse Resp BP Pulse Ox 98.2 F 66 18 142/81 95 09/06/18 20:00 09/06/18 20:00 09/06/18 20:00 09/06/18 20:00 09/06/18 09:00 Cor: RSR, No murmurs, No gallops Lungs: Clear to P&A Abd: Soft, Normal bowel sounds, No organomegaly Ext:No significant edema Labs/Meds reviewed IMAGING * CXR: Interval patchy airspace nodular-like densities in the RUL at site of previously visualized multiple bulla suggestive of infiltrates w/ pleural thickening. * Abd U/S: Borderline over-distended GB w/o intraluminal stones or sonographic evidence of acute cholecystitis. Multiple R renal cysts/parapelvic cysts w/ the largest measuring 5.3 x 3.9 cm. Splenomegaly. * CTAP w/ IV contrast: GB is moderately distended w/ a thickened appearance of the GB wall and mild pericholecystic edema concerning for cholecystitis. NO radio-opaque stones visualized. Liver, spleen, pancreas and adrenal glands are unremarkable. Multiple R renal cysts including a lobulated upper pole cyst w/ calcified septations. 2 small L renal cysts. Few non-distended loops of fluid- filled small bowel w/ air-fluid levels, likely ileus. No discrete transition point identified. Normal appendix. Diffuse mild thickened appearance of the colon may be 2/2 under distension vs. colitis. ASSESSMENT/PLAN: 77M w/ pmhx of COPD, GERD, EtOH abuse presented to the hospital with 1 day history of abdominal pain / diarrhea Pancytopenia--related to ? ongoing infection. thrombocytopenia dates back to 2014 coarse echoteture of liver on u/s along with splenomegaly ? commponent of liver disease cehck B12/folate/iron studies/ESR/CRP/PT/PTT/HIV/FRANCIS/RF will check smear monitor
--- NOTE | 2018-09-07 08:55 | PN ---
Teaching Attending Note Name of Resident: Shy Louise ATTENDING PHYSICIAN STATEMENT I saw and evaluated the patient. I reviewed the resident's note and discussed the case with the resident. I agree with the resident's findings and plan as documented. SUBJECTIVE: Patient is better today, going to OR in am. for Lap rosmery. OBJECTIVE: Vital Signs Temperature 97.9 F 09/07/18 06:00 Pulse Rate 64 09/07/18 06:00 Respiratory Rate 18 09/07/18 06:00 Blood Pressure 139/72 09/07/18 06:00 O2 Sat by Pulse Oximetry (%) 97 09/06/18 21:00 GENERAL: AAOx3. Laying comfortably. HEENT: AT/NC. EOMI. Dry mucus membranes. NECK: Normal range of motion, thyromegaly. LUNGS: B/l fine crackles in lower lung bases. Symmetric chest rise. HEART: RRR. Normal S1, S2. No murmurs noted. ABDOMEN: RUQ severe tenderness to palpation , positive for Brown sign. MUSCULOSKELETAL: Normal range of motion at all joints EXTREMITIES: 5/5 muscle strenght in u/l b/l extremities. NEUROLOGICAL: Cranial nerves II-XII intact. Normal speech. CBCD WBC 3.3 K/mm3 (4.0-10.0) L 09/06/18 05:55 RBC 3.50 M/mm3 (4.00-5.60) L 09/06/18 05:55 Hgb 10.7 GM/dL (11.7-16.9) L 09/06/18 05:55 Hct 30.9 % (35.4-49) L 09/06/18 05:55 MCV 88.3 fl (80-96) 09/06/18 05:55 MCHC 34.8 g/dl (32.0-35.9) 09/06/18 05:55 RDW 14.0 % (11.9-15.9) 09/06/18 05:55 Plt Count 81 K/MM3 (134-434) L 09/06/18 05:55 MPV 11.7 fl (7.5-11.1) H D 09/06/18 05:55 CMP Sodium 142 mmol/L (136-145) 09/06/18 05:55 Potassium 4.4 mmol/L (3.5-5.1) 09/06/18 05:55 Chloride 108 mmol/L (98-107) H 09/06/18 05:55 Carbon Dioxide 27 mmol/L (21-32) 09/06/18 05:55 Anion Gap 7 MMOL/L (8-16) L 09/06/18 05:55 BUN 16 mg/dL (7-18) 09/06/18 05:55 Creatinine 0.9 mg/dL (0.55-1.3) 09/06/18 05:55 Creat Clearance w eGFR > 60 (>60) 09/06/18 05:55 Random Glucose 62 mg/dL (74-106) L 09/06/18 05:55 Calcium 8.4 mg/dL (8.5-10.1) L 09/06/18 05:55 Total Bilirubin 0.4 mg/dL (0.2-1) 09/06/18 05:55 AST 23 U/L (15-37) 09/06/18 05:55 ALT 30 U/L (13-61) 09/06/18 05:55 Alkaline Phosphatase 89 U/L (45-117) 09/06/18 05:55 Total Protein 6.3 g/dl (6.4-8.2) L 09/06/18 05:55 Albumin 3.1 g/dl (3.4-5.0) L 09/06/18 05:55 CARDIAC ENZYMES Creatine Kinase 40 U/L (26-308) 09/03/18 12:45 Troponin I 0.02 ng/ml (0.00-0.05) 09/03/18 12:45 Current Medications Generic Name Dose Route Start Last Admin Trade Name Freq PRN Reason Stop Dose Admin Acetaminophen 1,000 mg 09/04/18 16:13 Ofirmev Injection - IVPB Q8H PRN PAIN LEVEL 4 - 6 Albuterol Sulfate 1 amp 09/06/18 11:39 Ventolin 0.083% Nebulizer Soln - NEB Q4H PRN SHORT OF BREATH/WHEEZING Metronidazole 500 mg in 100 mls @ 100 mls/hr 09/04/18 18:00 09/07/18 01:41 Flagyl 500mg Premixed Ivpb - IVPB 100 mls/hr Q8H-IV PATRICK Administration Levofloxacin 500 mg in 100 mls @ 100 mls/hr 09/04/18 16:15 09/06/18 11:10 Levaquin 500 Mg Premixed Ivpb - IVPB 100 mls/hr DAILY PATRICK Administration Protocol Lactated Ringer's 1,000 ml in 1,000 mls @ 83 mls/hr 09/05/18 10:15 09/06/18 18:54 Lactated Ringers Solution IV 09/07/18 22:18 83 mls/hr ASDIR PATRICK Administration Morphine Sulfate 2 mg 09/04/18 07:35 09/05/18 23:00 Morphine Sulfate IVPUSH 2 mg Q4H PRN Administration PAIN LEVEL 7-10 Home Medications Medication Instructions Recorded NK [No Known Home Medication] 12/04/15 09/03/18 13:45 Blood - Peripheral Venous Blood Culture - Preliminary NO GROWTH OBTAINED AFTER 48 HOURS, INCUBATION TO CONTINUE FOR 3 DAYS. 09/03/18 13:45 Blood - Peripheral Venous Blood Culture - Preliminary NO GROWTH OBTAINED AFTER 48 HOURS, INCUBATION TO CONTINUE FOR 3 DAYS. 09/03/18 13:30 Urine - Urine Clean Catch Urine Culture - Final CXR: Interval patchy airspace nodular-like densities in the RUL at site of previously visualized multiple bulla suggestive of infiltrates w/ pleural thickening. Abd U/S: Borderline over-distended GB w/o intraluminal stones or sonographic evidence of acute cholecystitis. Multiple R renal cysts/parapelvic cysts w/ the largest measuring 5.3 x 3.9 cm. Splenomegaly. CTAP w/ IV contrast: ([place] read) GB is moderately distended w/ a thickened appearance of the GB wall and mild pericholecystic edema concerning for cholecystitis. NO radio-opaque stones visualized. Liver, spleen, pancreas and adrenal glands are unremarkable. Multiple R renal cysts including a lobulated upper pole cyst w/ calcified septations. 2 small L renal cysts. Few non-distended loops of fluid-filled small bowel w/ air-fluid levels, likely ileus. No discrete transition point identified. Normal appendix. Diffuse mild thickened appearance of the colon may be 2/2 under distension vs. colitis. ASSESSMENT/PLAN: 77M w/ pmhx of COPD, GERD, EtOH abuse presented to the hospital with 1 day history of abdominal pain. # Acute pancolitis on IV antibiotics levaquin/flagyl IV, GI and ID consult appreciated, surgical consult appreciated. For Lap rosmery. in am for acute cholecysytis. # Acute cholecystitis on IV antibiotic , ID, surgery on the case , for surgery in am. s/p Hida scan with positive results. NPO on IVF d5w since blood sugar was low today. # Eosinophilia chronic: stool ova and parasite is pending, ordered strongyloides antibody, pending , please follow #Diarrhea; improved with hx of recent travelling arrived from the [facility] recently. -Due to eosinophilia and recent travel to the [facility], stool culture /ova & parasites pnding , follow the cx; follow strongyloides antibody. #RUQ; Hida scan positive for acute cholecystitis ,continue IV antibiotic #Hx of EtOH abuse; Recently quit heavy drinking about 1 month ago. stable. #Thrombocytopenia; likely due to alcohol abuse; hold heparin for now. #Bilateral multiple renal cysts , nephro consult appreciated. #Ppx; SCDs, hold heparin Discussed with Dr. Gregorio , surgery for am
[2018-09-07] MEDS: LACTATED RINGERS SOLUTION 1,000 ML/1,000 ML INFUS.BAG IV SCH (10:14)
[2018-09-07 10:25] LABS: BASO % 0.4 % (0-2.0); EOS % 10.2 % (0-4.5); HEMATOCRIT 30.7 % (35.4-49); HEMOGLOBIN 10.7 GM/dL (11.7-16.9); MCH 30.8 pg (25.7-33.7); MCHC 34.9 g/dl (32.0-35.9); MEAN CELL VOLUME 88.1 fl (80-96); MEAN PLT VOLUME 12.3 fl (7.5-11.1); MONO % 8.4 % (3.8-10.2); PLATELET COUNT 87 K/MM3 (134-434); RBC 3.49 M/mm3 (4.00-5.60); RDW 14.2 % (11.9-15.9); WHITE BLOOD COUNT 3.8 K/mm3 (4.0-10.0)
--- NOTE | 2018-09-07 10:25 | SPA.PREOP ---
- PRE-OP NOTE Dx: distended GB chronic josiah=olecystitits Planned Procedure: lap choleU Surgeon: Last Vital Signs Temp Pulse Resp BP Pulse Ox 97.7 F 63 18 132/69 97 09/07/18 09:13 09/07/18 09:13 09/07/18 09:13 09/07/18 09:13 09/06/18 21:00 Lab Results WBC 3.3 K/mm3 (4.0-10.0) L 09/06/18 05:55 RBC 3.50 M/mm3 (4.00-5.60) L 09/06/18 05:55 Hgb 10.7 GM/dL (11.7-16.9) L 09/06/18 05:55 Hct 30.9 % (35.4-49) L 09/06/18 05:55 MCV 88.3 fl (80-96) 09/06/18 05:55 MCHC 34.8 g/dl (32.0-35.9) 09/06/18 05:55 RDW 14.0 % (11.9-15.9) 09/06/18 05:55 Plt Count 81 K/MM3 (134-434) L 09/06/18 05:55 Sodium 142 mmol/L (136-145) 09/06/18 05:55 Potassium 4.4 mmol/L (3.5-5.1) 09/06/18 05:55 Chloride 108 mmol/L (98-107) H 09/06/18 05:55 Carbon Dioxide 27 mmol/L (21-32) 09/06/18 05:55 Anion Gap 7 MMOL/L (8-16) L 09/06/18 05:55 BUN 16 mg/dL (7-18) 09/06/18 05:55 Creatinine 0.9 mg/dL (0.55-1.3) 09/06/18 05:55 Random Glucose 62 mg/dL (74-106) L 09/06/18 05:55 Calcium 8.4 mg/dL (8.5-10.1) L 09/06/18 05:55 Blood Type O NEGATIVE 09/03/18 19:15 Antibody Screen Negative 09/03/18 15:15 INR 1.13 (0.83-1.09) H 09/03/18 15:15 HIDA SCAN: unable to visualie the GB after 2 hours c/w cystic duct obstruction. US: no stones, distended GB - ASSESSMENT/PLAN 1. Make NPO after midnight except po meds 2. GI/DVT PPX 3. Medical optimization / clearance 4. Consent to be obtained by surgeon after risks, benefits and alternatives discussed with patient and or Health Care Proxy. 5. Monitor platelets and transfuse as per hematology recommendations as needed for surgical procedure
[2018-09-07 10:39] LABS: ALBUMIN 3.1 g/dl (3.4-5.0); ALK PHOS 88 U/L (45-117); ANION GAP 12 MMOL/L (8-16); BILIRUBIN,TOTAL 0.4 mg/dL (0.2-1); BLOOD UREA NITROGEN 16 mg/dL (7-18); CALCIUM 8.4 mg/dL (8.5-10.1); CHLORIDE 106 mmol/L (98-107); CO2 20 mmol/L (21-32); CREATININE 0.9 mg/dL (0.55-1.3); GLUCOSE,RANDOM 57 mg/dL (74-106); MAGNESIUM 1.5 mg/dL (1.8-2.4); PHOSPHOROUS 3.3 mg/dL (2.5-4.9); POTASSIUM 3.9 mmol/L (3.5-5.1); SGOT/AST 25 U/L (15-37); SGPT/ALT 27 U/L (13-61); SODIUM 138 mmol/L (136-145); TOT PROT 6.2 g/dl (6.4-8.2)
[2018-09-07] MEDS ORDERED: DEXTROSE 5%-WATER - 1,000 ML IV SCH (11:30)
[2018-09-07 11:54] LABS: LDH 258 U/L (87-246)
--- NOTE | 2018-09-07 11:54 | PN ---
Physical Exam: SUBJECTIVE: Patient seen and examined at bedside. No acute events overnight. Pt' s abdominal pain has improved, but still feels pain upon palpation. Denies chest pain, sob, n/v, f/c, shabazz/d. Wishes to eat. OBJECTIVE: Last Vital Signs Temp Pulse Resp BP Pulse Ox 97.7 F 63 18 132/69 97 09/07/18 09:13 09/07/18 09:13 09/07/18 09:13 09/07/18 09:13 09/06/18 21:00 GENERAL: AAOx3. Laying comfortably. HEENT: AT/NC. EOMI. Dry mucus membranes. NECK: Normal range of motion, supple. LUNGS: B/l fine crackles in lower lung bases. Symmetric chest rise. HEART: RRR. Normal S1, S2. No murmurs noted. ABDOMEN: Soft, tender to palpation in RUQ. +Brown sign. MUSCULOSKELETAL: Normal range of motion at all joints EXTREMITIES: 5/5 muscle strenght in u/l b/l extremities. NEUROLOGICAL: Cranial nerves II-XII intact. Normal speech. CBC, BMP 09/07/18 10:00 09/07/18 10:00 Active Medications Acetaminophen (Ofirmev Injection -) 1,000 mg IVPB Q8H PRN PRN Reason: PAIN LEVEL 4 - 6 Albuterol Sulfate (Ventolin 0.083% Nebulizer Soln -) 1 amp NEB Q4H PRN PRN Reason: SHORT OF BREATH/WHEEZING Metronidazole (Flagyl 500mg Premixed Ivpb -) 500 mg in 100 mls @ 100 mls/hr IVPB Q8H-IV PATRICK Last Admin: 09/07/18 09:00 Dose: 100 mls/hr Levofloxacin (Levaquin 500 Mg Premixed Ivpb -) 500 mg in 100 mls @ 100 mls/hr IVPB DAILY PATRICK; Protocol Last Admin: 09/07/18 10:14 Dose: 100 mls/hr Lactated Ringer's (Lactated Ringers Solution) 1,000 ml in 1,000 mls @ 83 mls/ hr IV ASDIR PATRICK Stop: 09/07/18 22:18 Last Admin: 09/07/18 10:14 Dose: 83 mls/hr Dextrose (D5w -) 1,000 mls @ 50 mls/hr IV ASDIR PATRICK Magnesium Oxide (Mag-Ox -) 400 mg PO ONCE ONE Stop: 09/07/18 12:01 Morphine Sulfate (Morphine Sulfate) 2 mg IVPUSH Q4H PRN PRN Reason: PAIN LEVEL 7-10 Last Admin: 09/05/18 23:00 Dose: 2 mg IMAGING: * CXR: Interval patchy airspace nodular-like densities in the RUL at site of previously visualized multiple bulla suggestive of infiltrates w/ pleural thickening. * Abd U/S: Borderline over-distended GB w/o intraluminal stones or sonographic evidence of acute cholecystitis. Multiple R renal cysts/parapelvic cysts w/ the largest measuring 5.3 x 3.9 cm. Splenomegaly. * CTAP w/ IV contrast: apical predominant emphysema/bullous disease / biapical pleural calcifications Left > right / chronic appearing loculated effusions with more acute smaller effusions at the bases * HIDA scan: No filling of GB after 2 hours of imaging suggestive of cystic duct obstruction and acute rosmery in R clinical setting. ASSESSMENT/PLAN: 77M w/ pmhx of COPD, GERD, EtOH abuse presented to the hospital with 1 day history of abdominal pain and admitted for the treatment of pancolitis and partial small bowel ileus vs obstruction. #Diffuse pancolitis and Small Bowel Ileus: Improving, pt's abdominal pain has improved since admission, however scraper tender upon palpation. Last BM was yesterday morning. -D5 @ 50 -Per GI, lap rosmery schedule 09/08/18. Keep NPO. IVFs -Continue antibiotic management of pancolitis with Levaquin 500 QD IVPB/Flagyl 500 Q8H IVPB (started 09/04/18), now day 4 -Stool and micro cultures, stool and ova parasites, strongyloides Ab pending -BCx neg x72 hours, UCx neg, Stool cx pending, TB testing pending, C. diff pending, Strongyloides Ab pending -Repeat BCx ordered -Morphine 2 Q4H as needed for pain #Pleural calcifications/Effusions -Per pulm, pt's symptoms are likely consistent with chronic bronchitis, no overt infectious process suspected; Quant Gold and sputum ordered, active disease not suspected at this time. PFTs after d/c as outpatient. -Ventolin QID #History of EtOH abuse; no signs of withdrawal -If patient shows signs of withdrawal (tremors, diaphoresis, increased abdominal pain/diarrhea), cont detox #Thrombocytopenia: 2/2 ? liver disease, continue to monitor platelet count on this admission -Heparin held -No acute intervention indicated at this time -B12 215 -Per heme, order Folate/PT/PTT/Iron studies/RF/FRANCIS/ESR/CRP #Eosinophilia -Pt has eosinphilia 13.4 --> 10.2. There is a concern for possible parasitic infection given pt's recent travel to the [facility] and GI symptoms. Await stool cultures/ova and parasites/Strongyloides Ab. HIV testing ordered per ID. #Hypomagnesemia -Mg 1.5; repleted with Mag Ox 400 PO once -recheck in AM #Bilateral renal cysts: saw on CT -will need nephro and uro follow up #Prophylaxis -SCDs, hold heparin #FEN -D5 @ 50 -recheck lytes in AM -NPO except meds #Disposition -full code -alejandro botello scheduled for 09/08/18 Visit type - Emergency Visit Emergency Visit: Yes ED Registration Date: 09/03/18 Care time: The patient presented to the Emergency Department on the above date and was hospitalized for further evaluation of their emergent condition. - New Patient This patient is new to me today: No - Critical Care Critical Care patient: No
[2018-09-07] MEDS ORDERED: MAGNESIUM OXIDE 400 MG TABLET (FP) PO ONE (12:00)
[2018-09-07] MEDS ORDERED: DEXTROSE 50%-WATER - 25 GM/50 ML VIAL IVPUSH ONE (12:09)
--- NOTE | 2018-09-07 12:31 | PN ---
Progress Note (short form) - Note Progress Note: Resting in NAD. No CP or SOB. No acute events overnight. Intake & Output 09/04/18 09/05/18 09/06/18 09/07/18 23:59 23:59 23:59 23:59 Intake Total 2046 2196 1446 1200 Output Total 800 600 Balance 1246 2196 846 1200 Weight 161 lb 14.4 oz Last Vital Signs Temp Pulse Resp BP Pulse Ox 97.7 F 63 18 132/69 97 09/07/18 09:13 09/07/18 09:13 09/07/18 09:13 09/07/18 09:13 09/06/18 21:00 Active Medications Acetaminophen (Ofirmev Injection -) 1,000 mg IVPB Q8H PRN PRN Reason: PAIN LEVEL 4 - 6 Albuterol Sulfate (Ventolin 0.083% Nebulizer Soln -) 1 amp NEB Q4H PRN PRN Reason: SHORT OF BREATH/WHEEZING Metronidazole (Flagyl 500mg Premixed Ivpb -) 500 mg in 100 mls @ 100 mls/hr IVPB Q8H-IV PATR[facility] Last Admin: 09/07/18 09:00 Dose: 100 mls/hr Levofloxacin (Levaquin 500 Mg Premixed Ivpb -) 500 mg in 100 mls @ 100 mls/hr IVPB DAILY [facility]; Protocol Last Admin: 09/07/18 10:14 Dose: 100 mls/hr Lactated Ringer's (Lactated Ringers Solution) 1,000 ml in 1,000 mls @ 83 mls/ hr IV ASDIR PATRICK Stop: 09/07/18 22:18 Last Admin: 09/07/18 10:14 Dose: 83 mls/hr Dextrose (D5w -) 1,000 mls @ 50 mls/hr IV ASDIR PATRICK Last Admin: 09/07/18 11:58 Dose: 50 mls/hr Morphine Sulfate (Morphine Sulfate) 2 mg IVPUSH Q4H PRN PRN Reason: PAIN LEVEL 7-10 Last Admin: 09/05/18 23:00 Dose: 2 mg Constitutional: Yes: No Distress, Thin Eyes: Yes: Conjunctiva Clear, EOM Intact HENT: Yes: Atraumatic, Normocephalic Neck: Yes: Supple, Trachea Midline Cardiovascular: Yes: Regular Rate and Rhythm Respiratory: Yes: Cough, Diminished, Rhonchi. No: Accessory Muscle Use, Rales, SOB, SOB on Exertion, Stridor, Tachypnea, Wheezes ...Inspection: Yes: WNL ...Clubbing: No Gastrointestinal: Yes: Normal Bowel Sounds, Soft, Tenderness Renal/: Yes: WNL Musculoskeletal: Yes: WNL Extremities: Yes: WNL Edema: No Peripheral Pulses WNL: Yes Integumentary: Yes: WNL Neurological: Yes: WNL, Alert, Oriented ...Motor Strength: WNL Psychiatric: Yes: WNL, Alert, Oriented Labs: Laboratory Results - last 24 hr 09/07/18 09/07/18 09/07/18 10:00 10:00 11:23 WBC 3.8 L RBC 3.49 L Hgb 10.7 L Hct 30.7 L MCV 88.1 MCH 30.8 MCHC 34.9 RDW 14.2 Plt Count 87 L MPV 12.3 H Absolute Neuts (auto) 2.2 Neutrophils % 57.0 Lymphocytes % 24.0 D Monocytes % 8.4 Eosinophils % 10.2 H Basophils % 0.4 Nucleated RBC % 0 Sodium 138 Potassium 3.9 Chloride 106 Carbon Dioxide 20 L Anion Gap 12 BUN 16 Creatinine 0.9 Creat Clearance w eGFR > 60 POC Glucometer 63 Random Glucose 57 L Calcium 8.4 L Phosphorus 3.3 Magnesium 1.5 L Total Bilirubin 0.4 AST 25 ALT 27 Alkaline Phosphatase 88 LD Total 258 H Total Protein 6.2 L Albumin 3.1 L Vitamin B12 215 Free T4 1.13 Problem List - Problems (1) Emphysema of lung Code(s): J43.9 - EMPHYSEMA, UNSPECIFIED (2) Pleural calcification Code(s): J94.8 - OTHER SPECIFIED PLEURAL CONDITIONS (3) Pleural effusion Code(s): J90 - PLEURAL EFFUSION, NOT ELSEWHERE CLASSIFIED (4) Abdominal pain Code(s): R10.9 - UNSPECIFIED ABDOMINAL PAIN Qualifiers: Abdominal location: right upper quadrant Qualified Code(s): R10.11 - Right upper quadrant pain (5) Abnormal CXR Code(s): R93.89 - ABNORMAL FINDINGS ON DX IMAGING OF OTH BODY STRUCTURES (6) Colitis Code(s): K52.9 - NONINFECTIVE GASTROENTERITIS AND COLITIS, UNSPECIFIED (7) Pancytopenia Code(s): D61.818 - OTHER PANCYTOPENIA (8) Penicillin allergy Code(s): Z88.0 - ALLERGY STATUS TO PENICILLIN (9) RUQ abdominal pain Code(s): R10.11 - RIGHT UPPER QUADRANT PAIN (10) COPD (chronic obstructive pulmonary disease) Code(s): J44.9 - CHRONIC OBSTRUCTIVE PULMONARY DISEASE, UNSPECIFIED Assessment/Plan Symptoms consistent with chronic bronchitis. Do not suspect overt pulmonary infectious process. Follow Quant Gold and sputum. Do not suspect active disease at this time. O2 as needed ABX per ID BD TX PRN No indication for systemic steroids PFTs after discharge No smoking No Pulmonary contraindication for OR / anesthesia Dr Armijo Problem List - Problems (1) Emphysema of lung Code(s): J43.9 - EMPHYSEMA, UNSPECIFIED (2) Pleural calcification Code(s): J94.8 - OTHER SPECIFIED PLEURAL CONDITIONS (3) Pleural effusion Code(s): J90 - PLEURAL EFFUSION, NOT ELSEWHERE CLASSIFIED (4) Abdominal pain Code(s): R10.9 - UNSPECIFIED ABDOMINAL PAIN Qualifiers: Qualified Code(s): R10.11 - Right upper quadrant pain (5) Abnormal CXR Code(s): R93.89 - ABNORMAL FINDINGS ON DX IMAGING OF OTH BODY STRUCTURES (6) Colitis Code(s): K52.9 - NONINFECTIVE GASTROENTERITIS AND COLITIS, UNSPECIFIED (7) Pancytopenia Code(s): D61.818 - OTHER PANCYTOPENIA (8) Penicillin allergy Code(s): Z88.0 - ALLERGY STATUS TO PENICILLIN (9) RUQ abdominal pain Code(s): R10.11 - RIGHT UPPER QUADRANT PAIN (10) COPD (chronic obstructive pulmonary disease) Code(s): J44.9 - CHRONIC OBSTRUCTIVE PULMONARY DISEASE, UNSPECIFIED
--- NOTE | 2018-09-07 14:04 | PN ---
Progress Note, Physician History of Present Illness: Pt seen and examined at bedside. He is awake and alert. He denies dysuria or hematuria. - Current Medication List Current Medications: Active Medications Acetaminophen (Ofirmev Injection -) 1,000 mg IVPB Q8H PRN PRN Reason: PAIN LEVEL 4 - 6 Albuterol Sulfate (Ventolin 0.083% Nebulizer Soln -) 1 amp NEB Q4H PRN PRN Reason: SHORT OF BREATH/WHEEZING Metronidazole (Flagyl 500mg Premixed Ivpb -) 500 mg in 100 mls @ 100 mls/hr IVPB Q8H-IV PAT[facility] Last Admin: 09/07/18 09:00 Dose: 100 mls/hr Levofloxacin (Levaquin 500 Mg Premixed Ivpb -) 500 mg in 100 mls @ 100 mls/hr IVPB DAILY [facility]; Protocol Last Admin: 09/07/18 10:14 Dose: 100 mls/hr Lactated Ringer's (Lactated Ringers Solution) 1,000 ml in 1,000 mls @ 83 mls/ hr IV ASDIR PATRICK Stop: 09/07/18 22:18 Last Admin: 09/07/18 10:14 Dose: 83 mls/hr Dextrose (D5w -) 1,000 mls @ 50 mls/hr IV ASDIR PATRICK Last Admin: 09/07/18 11:58 Dose: 50 mls/hr Morphine Sulfate (Morphine Sulfate) 2 mg IVPUSH Q4H PRN PRN Reason: PAIN LEVEL 7-10 Last Admin: 09/05/18 23:00 Dose: 2 mg - Objective Vital Signs: Vital Signs Temperature 97.7 F 09/07/18 09:13 Pulse Rate 63 09/07/18 09:13 Respiratory Rate 18 09/07/18 09:13 Blood Pressure 132/69 09/07/18 09:13 O2 Sat by Pulse Oximetry (%) 97 09/06/18 21:00 Constitutional: Yes: Calm Eyes: Yes: Conjunctiva Clear HENT: Yes: Atraumatic Neck: Yes: Supple Cardiovascular: Yes: S1, S2 Respiratory: Yes: CTA Bilaterally Gastrointestinal: Yes: Soft, Tenderness Genitourinary: Yes: WNL Musculoskeletal: Yes: WNL Edema: No Neurological: Yes: Oriented Psychiatric: Yes: Oriented Labs: CBC, BMP 09/07/18 10:00 09/07/18 10:00 INR, PTT INR 1.13 (0.83-1.09) H 09/03/18 15:15 Assessment/Plan Current Medications Generic Name Dose Route Start Last Admin Trade Name Anthony PRN Reason Stop Dose Admin Acetaminophen 1,000 mg 09/04/18 16:13 Ofirmev Injection - IVPB Q8H PRN PAIN LEVEL 4 - 6 Albuterol Sulfate 1 amp 09/06/18 11:39 Ventolin 0.083% Nebulizer Soln - NEB Q4H PRN SHORT OF BREATH/WHEEZING Metronidazole 500 mg in 100 mls @ 100 mls/hr 09/04/18 18:00 09/07/18 09:00 Flagyl 500mg Premixed Ivpb - IVPB 100 mls/hr Q8H-IV PATRICK Administration Levofloxacin 500 mg in 100 mls @ 100 mls/hr 09/04/18 16:15 09/07/18 10:14 Levaquin 500 Mg Premixed Ivpb - IVPB 100 mls/hr DAILY [facility] Administration Protocol Lactated Ringer's 1,000 ml in 1,000 mls @ 83 mls/hr 09/05/18 10:15 09/07/18 10:14 Lactated Ringers Solution IV 09/07/18 22:18 83 mls/hr ASDIR PATRICK Administration Dextrose 1,000 mls @ 50 mls/hr 09/07/18 11:30 09/07/18 11:58 D5w - IV 50 mls/hr ASDIR PATRICK Administration Morphine Sulfate 2 mg 09/04/18 07:35 09/05/18 23:00 Morphine Sulfate IVPUSH 2 mg Q4H PRN Administration PAIN LEVEL 7-10 Impression 1. renal cysts 2. possible complex cyst 3. abd pain 4. eosinophilia 5. HTN 6. dehydration Plan - renal function is stable - replace mag - monitor renal function on fluids - GI workup - will follow Dr Chaidez
[2018-09-07] MEDS ORDERED: MAGNESIUM SULF 50% (8.12 MEQ/2 ML-1 GM VIAL) IVPB ONE (14:15)
[2018-09-07 15:54] VITALS: BMI 24.5
--- NOTE | 2018-09-07 16:56 | PN ---
GI Progress Note Subjective: No acute events Continues to complain of abdominal pain - Objective Vital Signs: Vital Signs Temperature 97.2 F L 09/07/18 14:11 Pulse Rate 62 09/07/18 14:11 Respiratory Rate 20 09/07/18 14:11 Blood Pressure 155/91 09/07/18 14:11 O2 Sat by Pulse Oximetry (%) 97 09/06/18 21:00 Constitutional: Calm Eyes: No: Sclera Icterus Cardiovascular: Yes: Regular Rate and Rhythm, Murmur (2/6 systolic murmur at the RSB) Respiratory: Yes: CTA Bilaterally Gastrointestinal Inspection: No: Distention ...Auscultate: Yes: Normoactive Bowel Sounds ...Palpate: Yes: Tenderness (TTP RUQ. + Brown's sign) ...Percussion: No: Tympanitic Edema: No (No LE edema) Labs: CBC, BMP 09/07/18 10:00 09/07/18 10:00 INR, PTT INR 1.13 (0.83-1.09) H 09/03/18 15:15 Problem List - Problems (1) Abdominal pain Assessment/Plan: Predominantly RUQ pain, with + HIDA: HAs been evaluated by Surgery and tentative plan is for cholecystectomy Evaluation of pancytopenia per primary team: ? myelosuppression from alcoholism , with peripheral eosinophilia, ? alternate hematologic process. Consider heme evaluation Check stool for O&P x 3 Check hepatitis C antibody, hepatitis A serologies, Hepatitis B surface antibody , hepatitis B surface antigen, hepatitis B core antibody Evaluation of heart murmur per primary team Code(s): R10.9 - UNSPECIFIED ABDOMINAL PAIN Qualifiers: Abdominal location: right upper quadrant Qualified Code(s): R10.11 - Right upper quadrant pain
[2018-09-07 17:46] LABS: INR 1.25 (0.83-1.09); PROTHROMBIN TIME (PATIENT) 14.8 SEC (9.7-13.0)
[2018-09-07 17:48] LABS: ACTIVATED PTT 23.6 SECONDS (25.2-36.5)
[2018-09-07] MEDS: MORPHINE SULFATE 2 MG/ML VIAL IVPUSH PRN (21:03)
[2018-09-07] MEDS: DEXTROSE 5%-WATER - 1,000 ML IV SCH (22:49)
[2018-09-08] MEDS: DEXTROSE 5%-WATER - 1,000 ML IV SCH ×2 (04:17→20:25)
[2018-09-08] MEDS: MORPHINE SULFATE 2 MG/ML VIAL IVPUSH PRN ×2 (05:57→12:20)
--- NOTE | 2018-09-08 10:16 | PN ---
Physical Exam: SUBJECTIVE: Patient seen and examined at bedside. No acute events overnight. Pt' s abdominal pain has improved. Still NPO. Denies chest pain, sob, shabazz/d, f/c, urinary/bowel symptoms. OBJECTIVE: Vital Signs Temperature 97.6 F 09/08/18 14:28 Pulse Rate 78 09/08/18 14:28 Respiratory Rate 20 09/08/18 14:28 Blood Pressure 119/71 09/08/18 14:28 O2 Sat by Pulse Oximetry (%) 97 09/08/18 09:00 GENERAL: AAOx3. Laying comfortably. HEENT: AT/NC. EOMI. Dry mucus membranes. NECK: Normal range of motion, supple. LUNGS: B/l fine crackles in lower lung bases. Symmetric chest rise. HEART: RRR. Normal S1, S2. No murmurs noted. ABDOMEN: Soft. Minimally tender to palpation in RUQ. Hypoactive BS. MUSCULOSKELETAL: Normal range of motion at all joints EXTREMITIES: 5/5 muscle strength in u/l b/l extremities. NEUROLOGICAL: Cranial nerves II-XII intact. Normal speech. CBC, BMP 09/07/18 10:00 09/07/18 10:00 Active Medications Acetaminophen (Ofirmev Injection -) 1,000 mg IVPB Q8H PRN PRN Reason: PAIN LEVEL 4 - 6 Albuterol Sulfate (Ventolin 0.083% Nebulizer Soln -) 1 amp NEB Q4H PRN PRN Reason: SHORT OF BREATH/WHEEZING Metronidazole (Flagyl 500mg Premixed Ivpb -) 500 mg in 100 mls @ 100 mls/hr IVPB Q8H-IV PATRICK Last Admin: 09/08/18 01:17 Dose: 100 mls/hr Levofloxacin (Levaquin 500 Mg Premixed Ivpb -) 500 mg in 100 mls @ 100 mls/hr IVPB DAILY [facility]; Protocol Last Admin: 09/07/18 10:14 Dose: 100 mls/hr Dextrose (D5w -) 1,000 mls @ 75 mls/hr IV ASDIR PATRICK Last Admin: 09/08/18 04:17 Dose: 75 mls/hr Morphine Sulfate (Morphine Sulfate) 2 mg IVPUSH Q4H PRN PRN Reason: PAIN LEVEL 7-10 Last Admin: 09/08/18 05:57 Dose: 2 mg IMAGING: * CXR: Interval patchy airspace nodular-like densities in the RUL at site of previously visualized multiple bulla suggestive of infiltrates w/ pleural thickening. * Abd U/S: Borderline over-distended GB w/o intraluminal stones or sonographic evidence of acute cholecystitis. Multiple R renal cysts/parapelvic cysts w/ the largest measuring 5.3 x 3.9 cm. Splenomegaly. * CTAP w/ IV contrast: apical predominant emphysema/bullous disease / biapical pleural calcifications Left > right / chronic appearing loculated effusions with more acute smaller effusions at the bases * HIDA scan: No filling of GB after 2 hours of imaging suggestive of cystic duct obstruction and acute rosmery in R clinical setting. * repeat HIDA scan (09/08/18): pending ASSESSMENT/PLAN: 77M w/ pmhx of COPD, GERD, EtOH abuse presented to the hospital with 1 day history of abdominal pain and admitted for the treatment of pancolitis and partial small bowel ileus vs obstruction. #Diffuse pancolitis and Small Bowel Ileus: Improving, pt's abdominal pain has improved since admission, however exhaust tender upon palpation. Last BM was yesterday morning. -D5W @ 50 -Per GI, surgery canceled for today, as pt has low platelets and HIDA scan showed no evidence of gallstones. Will repeat HIDA scan and re-evaluate if surgery is needed. Follow up surg recs and HIDA scan -Continue antibiotic management of pancolitis with Levaquin 500 QD IVPB/Flagyl 500 Q8H IVPB (started 09/04/18), now day 5 -Stool and micro cultures, stool and ova parasites, strongyloides Ab pending -BCx neg x5 days, UCx neg, Stool cx neg, TB testing pending, C. diff neg, Strongyloides Ab pending -Repeat BCx [id number] -Morphine 2 Q4H as needed for pain #Pleural calcifications/Effusions -Per pulm, pt's symptoms are likely consistent with chronic bronchitis, no overt infectious process suspected; Quant Gold and sputum ordered, active disease not suspected at this time. PFTs after d/c as outpatient. -Ventolin QID #History of EtOH abuse; no signs of withdrawal -If patient shows signs of withdrawal (tremors, diaphoresis, increased abdominal pain/diarrhea), cont detox #Thrombocytopenia: 2/ ? liver disease, continue to monitor platelet count on this admission -Heparin held -No acute intervention indicated at this time -B12 215 -Per heme, order Folate/PT/PTT/Iron studies #Eosinophilia -Pt has eosinphilia 13.4 --> 10.2. There is a concern for possible parasitic infection given pt's recent travel to the [facility] and GI symptoms. Still await stool cultures/ova and parasites/Strongyloides Ab. HIV testing ordered per ID. -will repeat CBC w/ diff #Hypomagnesemia -check in AM -replete PRN #Bilateral renal cysts: saw on CT -will need nephro and uro follow up #Prophylaxis -SCDs, hold heparin #FEN -D5 @ 50 -recheck lytes in AM -NPO except meds #Disposition -full code -alejandro rosmery scheduled for 09/08/18 Visit type - Emergency Visit Emergency Visit: Yes ED Registration Date: 09/03/18 Care time: The patient presented to the Emergency Department on the above date and was hospitalized for further evaluation of their emergent condition. - New Patient This patient is new to me today: No - Critical Care Critical Care patient: No
--- NOTE | 2018-09-08 11:44 | PN ---
Progress Note, Physician History of Present Illness: Pt seen/examined at bedside, scheduled for cholecystectomy today per surgery. Still with RUQ pain though some improvement, denies n/v, fever/chills. Loose bm yesterday per pt, no blood. - Current Medication List Current Medications: Active Medications Acetaminophen (Ofirmev Injection -) 1,000 mg IVPB Q8H PRN PRN Reason: PAIN LEVEL 4 - 6 Albuterol Sulfate (Ventolin 0.083% Nebulizer Soln -) 1 amp NEB Q4H PRN PRN Reason: SHORT OF BREATH/WHEEZING Metronidazole (Flagyl 500mg Premixed Ivpb -) 500 mg in 100 mls @ 100 mls/hr IVPB Q8H-IV PATRICK Last Admin: 09/08/18 10:46 Dose: 100 mls/hr Levofloxacin (Levaquin 500 Mg Premixed Ivpb -) 500 mg in 100 mls @ 100 mls/hr IVPB DAILY PAT[facility]; Protocol Last Admin: 09/08/18 10:46 Dose: 100 mls/hr Dextrose (D5w -) 1,000 mls @ 75 mls/hr IV ASDIR PATRICK Last Admin: 09/08/18 04:17 Dose: 75 mls/hr Morphine Sulfate (Morphine Sulfate) 2 mg IVPUSH Q4H PRN PRN Reason: PAIN LEVEL 7-10 Last Admin: 09/08/18 05:57 Dose: 2 mg - Objective Vital Signs: Vital Signs Temperature 98 F 09/08/18 09:51 Pulse Rate 63 09/08/18 09:51 Respiratory Rate 20 09/08/18 09:51 Blood Pressure 123/69 09/08/18 09:51 O2 Sat by Pulse Oximetry (%) 97 09/08/18 09:00 Constitutional: Yes: Well Nourished, No Distress, Calm Cardiovascular: Yes: WNL, Regular Rate and Rhythm Respiratory: Yes: WNL, Regular, CTA Bilaterally Gastrointestinal: Yes: WNL, Normal Bowel Sounds, Soft, Other (Abd soft, mildly tender in RUQ on palpation, nondistended) Labs: CBC, BMP 09/07/18 10:00 09/07/18 10:00 INR, PTT INR 1.25 (0.83-1.09) H 09/07/18 17:10 Problem List - Problems (1) Abdominal pain Assessment/Plan: 77yo male h/o ETOH abuse presents with RUQ pain and loose stools, with positive HIDA scan scheduled for cholecystectomy today per surgery. C difficile negative. LFTs normal (as reviewed from yesterdays labs, none yet available today) with possible coarsened liver on US. Pancytopenia also noted of unclear exact etiology. -Follow up surgery recommendations for cholecystectomy (scheduled later today) -Follow up stool ova/parasites r/o infectious etiology in setting of recent travel -Check iron studies/ferritin, B12/folate and follow up with hematology for further evaluation of pancytopenia -Check Hepatitis serologies as requested previously (ordered) Code(s): R10.9 - UNSPECIFIED ABDOMINAL PAIN Qualifiers: Abdominal location: right upper quadrant Qualified Code(s): R10.11 - Right upper quadrant pain
--- NOTE | 2018-09-08 12:09 | PN ---
Progress Note, Physician History of Present Illness: pulmonary alert,laying in bed dyspnea improving,+ c/o abdominal pain - Current Medication List Current Medications: Active Medications Acetaminophen (Ofirmev Injection -) 1,000 mg IVPB Q8H PRN PRN Reason: PAIN LEVEL 4 - 6 Albuterol Sulfate (Ventolin 0.083% Nebulizer Soln -) 1 amp NEB Q4H PRN PRN Reason: SHORT OF BREATH/WHEEZING Metronidazole (Flagyl 500mg Premixed Ivpb -) 500 mg in 100 mls @ 100 mls/hr IVPB Q8H-IV PATRICK Last Admin: 09/08/18 10:46 Dose: 100 mls/hr Levofloxacin (Levaquin 500 Mg Premixed Ivpb -) 500 mg in 100 mls @ 100 mls/hr IVPB DAILY [facility]; Protocol Last Admin: 09/08/18 10:46 Dose: 100 mls/hr Dextrose (D5w -) 1,000 mls @ 75 mls/hr IV ASDIR PATRICK Last Admin: 09/08/18 04:17 Dose: 75 mls/hr Morphine Sulfate (Morphine Sulfate) 2 mg IVPUSH Q4H PRN PRN Reason: PAIN LEVEL 7-10 Last Admin: 09/08/18 05:57 Dose: 2 mg - Objective Vital Signs: Vital Signs Temperature 98 F 09/08/18 09:51 Pulse Rate 63 09/08/18 09:51 Respiratory Rate 20 09/08/18 09:51 Blood Pressure 123/69 09/08/18 09:51 O2 Sat by Pulse Oximetry (%) 97 09/08/18 09:00 Constitutional: Yes: Well Nourished, Calm Eyes: Yes: WNL HENT: Yes: WNL Neck: Yes: WNL Cardiovascular: Yes: Regular Rate and Rhythm, S1, S2 Respiratory: Yes: Rhonchi (few rhonchi) Gastrointestinal: Yes: Soft, Tenderness Extremities: Yes: WNL Edema: No Labs: Assessment/Plan Problem List - Problems (1) Emphysema of lung Code(s): J43.9 - EMPHYSEMA, UNSPECIFIED (2) Pleural calcification Code(s): J94.8 - OTHER SPECIFIED PLEURAL CONDITIONS (3) Pleural effusion Code(s): J90 - PLEURAL EFFUSION, NOT ELSEWHERE CLASSIFIED (4) Abdominal pain Code(s): R10.9 - UNSPECIFIED ABDOMINAL PAIN Qualifiers: Abdominal location: right upper quadrant Qualified Code(s): R10.11 - Right upper quadrant pain (5) Abnormal CXR Code(s): R93.89 - ABNORMAL FINDINGS ON DX IMAGING OF OTH BODY STRUCTURES (6) Colitis Code(s): K52.9 - NONINFECTIVE GASTROENTERITIS AND COLITIS, UNSPECIFIED (7) Pancytopenia Code(s): D61.818 - OTHER PANCYTOPENIA (8) Penicillin allergy Code(s): Z88.0 - ALLERGY STATUS TO PENICILLIN (9) RUQ abdominal pain Code(s): R10.11 - RIGHT UPPER QUADRANT PAIN (10) COPD (chronic obstructive pulmonary disease) Code(s): J44.9 - CHRONIC OBSTRUCTIVE PULMONARY DISEASE, UNSPECIFIED Assessment/Plan Symptoms consistent with chronic bronchitis. Do not suspect overt pulmonary infectious process. Do not suspect active disease at this time. O2 as needed ABX per ID BD TX PRN PFTs after discharge No smoking No Pulmonary contraindication for OR / anesthesia Dr Mcgraw Problem List - Problems (1) Emphysema of lung Code(s): J43.9 - EMPHYSEMA, UNSPECIFIED (2) Pleural calcification Code(s): J94.8 - OTHER SPECIFIED PLEURAL CONDITIONS (3) Pleural effusion Code(s): J90 - PLEURAL EFFUSION, NOT ELSEWHERE CLASSIFIED (4) Abdominal pain Code(s): R10.9 - UNSPECIFIED ABDOMINAL PAIN Qualifiers: Qualified Code(s): R10.11 - Right upper quadrant pain (5) Abnormal CXR Code(s): R93.89 - ABNORMAL FINDINGS ON DX IMAGING OF OTH BODY STRUCTURES (6) Colitis Code(s): K52.9 - NONINFECTIVE GASTROENTERITIS AND COLITIS, UNSPECIFIED (7) Pancytopenia Code(s): D61.818 - OTHER PANCYTOPENIA (8) Penicillin allergy Code(s): Z88.0 - ALLERGY STATUS TO PENICILLIN (9) RUQ abdominal pain Code(s): R10.11 - RIGHT UPPER QUADRANT PAIN (10) COPD (chronic obstructive pulmonary disease) Code(s): J44.9 - CHRONIC OBSTRUCTIVE PULMONARY DISEASE, UNSPECIFIED
--- NOTE | 2018-09-08 13:13 | PN ---
Progress Note, Physician History of Present Illness: Pt seen and examined at bedside. He denies shortness of breath. He denies dysuria. - Current Medication List Current Medications: Active Medications Acetaminophen (Ofirmev Injection -) 1,000 mg IVPB Q8H PRN PRN Reason: PAIN LEVEL 4 - 6 Albuterol Sulfate (Ventolin 0.083% Nebulizer Soln -) 1 amp NEB Q4H PRN PRN Reason: SHORT OF BREATH/WHEEZING Metronidazole (Flagyl 500mg Premixed Ivpb -) 500 mg in 100 mls @ 100 mls/hr IVPB Q8H-IV PATRICK Last Admin: 09/08/18 10:46 Dose: 100 mls/hr Levofloxacin (Levaquin 500 Mg Premixed Ivpb -) 500 mg in 100 mls @ 100 mls/hr IVPB DAILY [facility]; Protocol Last Admin: 09/08/18 10:46 Dose: 100 mls/hr Dextrose (D5w -) 1,000 mls @ 75 mls/hr IV ASDIR PATRICK Last Admin: 09/08/18 04:17 Dose: 75 mls/hr Morphine Sulfate (Morphine Sulfate) 2 mg IVPUSH Q4H PRN PRN Reason: PAIN LEVEL 7-10 Last Admin: 09/08/18 12:20 Dose: 2 mg - Objective Vital Signs: Vital Signs Temperature 98 F 09/08/18 09:51 Pulse Rate 63 09/08/18 09:51 Respiratory Rate 20 09/08/18 09:51 Blood Pressure 123/69 09/08/18 09:51 O2 Sat by Pulse Oximetry (%) 97 09/08/18 09:00 Constitutional: Yes: Calm Eyes: Yes: Conjunctiva Clear HENT: Yes: Atraumatic Cardiovascular: Yes: S1, S2 Respiratory: Yes: CTA Bilaterally Gastrointestinal: Yes: Tenderness Genitourinary: Yes: WNL Musculoskeletal: Yes: WNL Edema: No Neurological: Yes: Oriented Psychiatric: Yes: Oriented Labs: CBC, BMP 09/07/18 10:00 09/07/18 10:00 INR, PTT INR 1.25 (0.83-1.09) H 09/07/18 17:10 Assessment/Plan Current Medications Generic Name Dose Route Start Last Admin Trade Name Freq PRN Reason Stop Dose Admin Acetaminophen 1,000 mg 09/04/18 16:13 Ofirmev Injection - IVPB Q8H PRN PAIN LEVEL 4 - 6 Albuterol Sulfate 1 amp 09/06/18 11:39 Ventolin 0.083% Nebulizer Soln - NEB Q4H PRN SHORT OF BREATH/WHEEZING Metronidazole 500 mg in 100 mls @ 100 mls/hr 09/04/18 18:00 09/08/18 10:46 Flagyl 500mg Premixed Ivpb - IVPB 100 mls/hr Q8H-IV PATRICK Administration Levofloxacin 500 mg in 100 mls @ 100 mls/hr 09/04/18 16:15 09/08/18 10:46 Levaquin 500 Mg Premixed Ivpb - IVPB 100 mls/hr DAILY [facility] Administration Protocol Dextrose 1,000 mls @ 75 mls/hr 09/07/18 20:00 09/08/18 04:17 D5w - IV 75 mls/hr ASDIR PATRICK Administration Morphine Sulfate 2 mg 09/04/18 07:35 09/08/18 12:20 Morphine Sulfate IVPUSH 2 mg Q4H PRN Administration PAIN LEVEL 7-10 Impression 1. renal cysts 2. possible complex cyst 3. abd pain 4. eosinophilia 5. HTN 6. dehydration 7. cholecystitis Plan - replace mag - cont fluids - pt is npo for OR - monitor kari Chaidez
--- NOTE | 2018-09-08 15:30 | PN ---
Progress Note (short form) - Note Progress Note: Attending Surgeon I cancelled todays surgery b/o # unresolved medical issues which are being adressed including f/u nuclear imaging; I have several concerns given the fact that he has no imaging evidence of cholelithiasis. Sharan Gregorio MD FACS
[2018-09-08] MEDS ORDERED: morphine CARPU-JECT 4 MG/1 ML DISP.SYRIN IVPUSH ONE (16:16)
[2018-09-08] MEDS ORDERED: morphine SULFATE 4 MG/ML VIAL IVPUSH ONE (16:16)
--- NOTE | 2018-09-08 18:19 | PN ---
Teaching Attending Note Name of Resident: Fabricio Powell ATTENDING PHYSICIAN STATEMENT I saw and evaluated the patient. I reviewed the resident's note and discussed the case with the resident. I agree with the resident's findings and plan as documented. SUBJECTIVE: No fever or chills. abd pain has improved and now located in RUQ. No fever . No N/V. No diarrhea. yesterday he had one BM OBJECTIVE: NAD CV: RRR, 3/6 SM at RUSB , with radiation to carotids. Lungs : CTAB ext : No edema or erythema Abd: sfot, ND, TTP in Ll quadrants, neg [place]' ASSESSMENT AND PLAN: 77 y/o man with h/o alcohol use ( quit 5 yr ago), COPD, GERD who presented with abd pain and diarrhea and was found to have rose colitis and gall bladder distension 1- ABd pain, could be due to colitis. unlcear if he has acute cholecystitis as per d/w Dr. Gregorio who doubts it without stones. - repeat HIDA with morphine administration prior to study - No surgery pending further testing - cont Abx - diarrhea resolved. - stool cx neg - cont IVF 2- Seevre pulm disease, possible emphysema, not active now. - cont Nebs - + QTF, follow AFb - pulmonary on board 3- Pancytopenia: ? BM suppression vs BM disease , VS viral - follow with heme /smear - start B12 supplementation . as level is low nl - check iron studies 4- Eosinophilia : neg IV, follow O&P, ? hematologic maligancy ( follow with heme ) dispo : HLOC pending w/u
[2018-09-09] MEDS: DEXTROSE 5%-WATER - 1,000 ML IV SCH (01:49)
[2018-09-09 09:06] LABS: BASO % 0.6 % (0-2.0); EOS % 9.2 % (0-4.5); HEMATOCRIT 34.1 % (35.4-49); HEMOGLOBIN 11.9 GM/dL (11.7-16.9); LYMPH % 23.9 % (8-40); MCH 30.5 pg (25.7-33.7); MEAN CELL VOLUME 87.3 fl (80-96); MEAN PLT VOLUME 12.2 fl (7.5-11.1); MONO % 7.7 % (3.8-10.2); NEUT % 58.6 % (42.8-82.8); PLATELET COUNT 104 K/MM3 (134-434); RBC 3.91 M/mm3 (4.00-5.60); RDW 14.2 % (11.9-15.9); WHITE BLOOD COUNT 3.9 K/mm3 (4.0-10.0)
[2018-09-09 09:48] LABS: ALBUMIN 3.4 g/dl (3.4-5.0); ALK PHOS 89 U/L (45-117); ANION GAP 8 MMOL/L (8-16); BILIRUBIN,TOTAL 0.4 mg/dL (0.2-1); BLOOD UREA NITROGEN 10 mg/dL (7-18); CALCIUM 8.8 mg/dL (8.5-10.1); CHLORIDE 104 mmol/L (98-107); CO2 26 mmol/L (21-32); CREATININE 0.9 mg/dL (0.55-1.3); GLUCOSE,RANDOM 95 mg/dL (74-106); POTASSIUM 3.7 mmol/L (3.5-5.1); SGOT/AST 33 U/L (15-37); SGPT/ALT 28 U/L (13-61); SODIUM 138 mmol/L (136-145); TOT PROT 6.7 g/dl (6.4-8.2)
[2018-09-09] MEDS ORDERED: CYANOCOBALAMIN 1,000 MCG TABLET (FP) PO SCH (10:00)
[2018-09-09] MEDS ORDERED: PT OWN MED DRAWER 7, Y5N ONE (11:45)
--- NOTE | 2018-09-09 12:14 | PN ---
Progress Note (short form) - Note Progress Note: Resting in NAD. No CP or SOB. Still with some RUQ discomfort. No acute events overnight. Intake & Output 09/06/18 09/07/18 09/08/18 09/09/18 23:59 23:59 23:59 23:59 Intake Total 1446 1700 950 900 Output Total 600 3 2 Balance 846 1700 947 898 Weight 161 lb Last Vital Signs Temp Pulse Resp BP Pulse Ox 97.7 F 71 18 121/73 97 09/09/18 09:00 09/09/18 09:00 09/09/18 09:00 09/09/18 09:00 09/08/18 21:00 Active Medications Acetaminophen (Ofirmev Injection -) 1,000 mg IVPB Q8H PRN PRN Reason: PAIN LEVEL 4 - 6 Albuterol Sulfate (Ventolin 0.083% Nebulizer Soln -) 1 amp NEB Q4H PRN PRN Reason: SHORT OF BREATH/WHEEZING Cyanocobalamin (Vitamin B12 -) 1,000 mcg PO DAILY [facility] Last Admin: 09/09/18 11:37 Dose: 1,000 mcg Dextrose (D5w -) 1,000 mls @ 75 mls/hr IV ASDIR [facility] Last Admin: 09/09/18 01:49 Dose: 75 mls/hr Constitutional: Yes: No Distress, Thin Eyes: Yes: Conjunctiva Clear, EOM Intact HENT: Yes: Atraumatic, Normocephalic Neck: Yes: Supple, Trachea Midline Cardiovascular: Yes: Regular Rate and Rhythm Respiratory: Yes: Cough, Diminished, Rhonchi. No: Accessory Muscle Use, Rales, SOB, SOB on Exertion, Stridor, Tachypnea, Wheezes ...Inspection: Yes: WNL ...Clubbing: No Gastrointestinal: Yes: Normal Bowel Sounds, Soft, Tenderness Renal/: Yes: WNL Musculoskeletal: Yes: WNL Extremities: Yes: WNL Edema: No Peripheral Pulses WNL: Yes Integumentary: Yes: WNL Neurological: Yes: WNL, Alert, Oriented ...Motor Strength: WNL Psychiatric: Yes: WNL, Alert, Oriented Labs: Laboratory Results - last 24 hr 09/06/18 09/09/18 09/09/18 05:55 08:00 08:00 WBC 3.9 L RBC 3.91 L Hgb 11.9 Hct 34.1 L MCV 87.3 MCH 30.5 MCHC 35.0 RDW 14.2 Plt Count 104 L MPV 12.2 H Absolute Neuts (auto) 2.3 Neutrophils % 58.6 Lymphocytes % 23.9 Monocytes % 7.7 Eosinophils % 9.2 H Basophils % 0.6 Nucleated RBC % 0 Sodium 138 Potassium 3.7 Chloride 104 Carbon Dioxide 26 Anion Gap 8 BUN 10 Creatinine 0.9 Creat Clearance w eGFR > 60 Random Glucose 95 Calcium 8.8 Ferritin 259.6 Total Bilirubin 0.4 AST 33 ALT 28 Alkaline Phosphatase 89 Total Protein 6.7 Albumin 3.4 Strongyloides IgG Ab Positive H - Problems (1) Emphysema of lung Code(s): J43.9 - EMPHYSEMA, UNSPECIFIED (2) Pleural calcification Code(s): J94.8 - OTHER SPECIFIED PLEURAL CONDITIONS (3) Pleural effusion Code(s): J90 - PLEURAL EFFUSION, NOT ELSEWHERE CLASSIFIED (4) Abdominal pain Code(s): R10.9 - UNSPECIFIED ABDOMINAL PAIN Qualifiers: Abdominal location: right upper quadrant Qualified Code(s): R10.11 - Right upper quadrant pain (5) Abnormal CXR Code(s): R93.89 - ABNORMAL FINDINGS ON DX IMAGING OF OTH BODY STRUCTURES (6) Colitis Code(s): K52.9 - NONINFECTIVE GASTROENTERITIS AND COLITIS, UNSPECIFIED (7) Pancytopenia Code(s): D61.818 - OTHER PANCYTOPENIA (8) Penicillin allergy Code(s): Z88.0 - ALLERGY STATUS TO PENICILLIN (9) RUQ abdominal pain Code(s): R10.11 - RIGHT UPPER QUADRANT PAIN (10) COPD (chronic obstructive pulmonary disease) Code(s): J44.9 - CHRONIC OBSTRUCTIVE PULMONARY DISEASE, UNSPECIFIED Assessment/Plan Symptoms consistent with chronic bronchitis. Do not suspect overt pulmonary infectious process. Follow final AFB O2 as needed ABX per ID BD TX PRN No indication for systemic steroids PFTs after discharge No smoking Dr Armijo Problem List - Problems (1) Emphysema of lung Code(s): J43.9 - EMPHYSEMA, UNSPECIFIED (2) Pleural calcification Code(s): J94.8 - OTHER SPECIFIED PLEURAL CONDITIONS (3) Pleural effusion Code(s): J90 - PLEURAL EFFUSION, NOT ELSEWHERE CLASSIFIED (4) Abdominal pain Code(s): R10.9 - UNSPECIFIED ABDOMINAL PAIN Qualifiers: Abdominal location: right upper quadrant Qualified Code(s): R10.11 - Right upper quadrant pain (5) Abnormal CXR Code(s): R93.89 - ABNORMAL FINDINGS ON DX IMAGING OF OTH BODY STRUCTURES (6) Colitis Code(s): K52.9 - NONINFECTIVE GASTROENTERITIS AND COLITIS, UNSPECIFIED (7) Pancytopenia Code(s): D61.818 - OTHER PANCYTOPENIA (8) Penicillin allergy Code(s): Z88.0 - ALLERGY STATUS TO PENICILLIN (9) RUQ abdominal pain Code(s): R10.11 - RIGHT UPPER QUADRANT PAIN (10) COPD (chronic obstructive pulmonary disease) Code(s): J44.9 - CHRONIC OBSTRUCTIVE PULMONARY DISEASE, UNSPECIFIED
--- NOTE | 2018-09-09 14:30 | PN ---
Teaching Attending Note Name of Resident: Shy Louise ATTENDING PHYSICIAN STATEMENT I saw and evaluated the patient. I reviewed the resident's note and discussed the case with the resident. I agree with the resident's findings and plan as documented. 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 No abd pain , no N/V. No SOB OBJECTIVE: NAD CV: RRR, 3/6 SM at RUSB, with radiation to carotids. Lungs : CTAB ext : No edema or erythema Abd: soft, ND,NT today ASSESSMENT AND PLAN: 77 y/o man with h/o alcohol use ( quit 5 yr ago), COPD, GERD who presented with abd pain and diarrhea and was found to have rose colitis and gall bladder distension 1- ABd pain, could be due to colitis. Now resolved and no tenderness on exam either Repeat HIDa with filling of gall bladder and suggestion of possible chronic cholecystitis - [place] bx. - d/w Dr. Gregorio. No indication for surgery now or in the future. - O&P pending . No diarrhea. No need for abx - start regular diet 2-Severe pulm disease, possible emphysema, not active now. - cont inhalers at dc - + QTF, 2 AFB direct testing Neg. final culture form [facility] pending . third sample was sent today -d/dw Pulm, low risk fro TB, f/u as out patient 3- Pancytopenia: Likely bone marrow suppression in setting of acute disease as it is recovering. - follow with heme as outpt - Cont B12 supplementation . as level is low nl - iron studies pending 4- Eosinophilia : neg HIV, O&P pending, ? hematologic maligancy ( follow with heme ) 5- Heart murmur, patient was informed of possibility of , and the need for out patient ECHo by PCP and possible referral to card if echo is abnormal Dispo: [place] home
[2018-09-09 14:58] VITALS: BP 143/57; PULSE 67; TEMP 98.2
--- NOTE | 2018-09-09 15:47 | PN ---
Progress Note, Physician History of Present Illness: Pt seen and examined at bedside. He is awake and alert. He says that the abdominal pain has resolved. - Current Medication List Current Medications: Active Medications Acetaminophen (Ofirmev Injection -) 1,000 mg IVPB Q8H PRN PRN Reason: PAIN LEVEL 4 - 6 Albuterol Sulfate (Ventolin 0.083% Nebulizer Soln -) 1 amp NEB Q4H PRN PRN Reason: SHORT OF BREATH/WHEEZING Cyanocobalamin (Vitamin B12 -) 1,000 mcg PO DAILY [facility] Last Admin: 09/09/18 11:37 Dose: 1,000 mcg - Objective Vital Signs: Vital Signs Temperature 98.2 F 09/09/18 14:54 Pulse Rate 67 09/09/18 14:54 Respiratory Rate 20 09/09/18 14:54 Blood Pressure 143/57 L 09/09/18 14:54 O2 Sat by Pulse Oximetry (%) 94 L 09/09/18 09:00 Constitutional: Yes: Calm Eyes: Yes: Conjunctiva Clear HENT: Yes: Atraumatic Cardiovascular: Yes: S1, S2 Respiratory: Yes: CTA Bilaterally Gastrointestinal: Yes: Normal Bowel Sounds, Soft. No: Tenderness Genitourinary: Yes: WNL Musculoskeletal: Yes: WNL Edema: No Neurological: Yes: Oriented Psychiatric: Yes: Oriented Labs: CBC, BMP 09/09/18 08:00 09/09/18 08:00 INR, PTT INR 1.25 (0.83-1.09) H 09/07/18 17:10 Assessment/Plan Current Medications Generic Name Dose Route Start Last Admin Trade Name Anthony PRN Reason Stop Dose Admin Acetaminophen 1,000 mg 09/04/18 16:13 Ofirmev Injection - IVPB Q8H PRN PAIN LEVEL 4 - 6 Albuterol Sulfate 1 amp 09/06/18 11:39 Ventolin 0.083% Nebulizer Soln - NEB Q4H PRN SHORT OF BREATH/WHEEZING Cyanocobalamin 1,000 mcg 09/09/18 10:00 09/09/18 11:37 Vitamin B12 - PO 1,000 mcg DAILY [facility] Administration Impression 1. renal cysts 2. possible complex cyst 3. abd pain 4. eosinophilia 5. HTN 6. dehydration 7. cholecystitis Plan - renal function stable - pt on PO diet - d/c fluids - monitor for abd pain - surgery cancelled - will follow PRN Dr Chaidez
--- NOTE | 2018-09-09 16:04 | PN ---
GI Progress Note Subjective: No acute events Denies abdominal pain or further diarrhea No rectal bleeding Repeat HIDA was negative - Objective Vital Signs: Vital Signs Temperature 98.2 F 09/09/18 14:54 Pulse Rate 67 09/09/18 14:54 Respiratory Rate 20 09/09/18 14:54 Blood Pressure 143/57 L 09/09/18 14:54 O2 Sat by Pulse Oximetry (%) 94 L 09/09/18 09:00 Constitutional: Calm Eyes: No: Sclera Icterus Cardiovascular: Yes: Regular Rate and Rhythm, Murmur Respiratory: Yes: CTA Bilaterally Gastrointestinal Inspection: No: Distention ...Auscultate: Yes: Normoactive Bowel Sounds ...Palpate: No: Hepatomegaly, Splenomegaly, Tenderness ...Percussion: No: Tympanitic Edema: No (No LE edema) Neurological: Yes: Alert Labs: CBC, BMP 09/09/18 08:00 09/09/18 08:00 INR, PTT INR 1.25 (0.83-1.09) H 09/07/18 17:10 Laboratory Tests 09/06/18 09/06/18 09/07/18 05:55 12:25 12:55 Hepatitis A Ab Total Hep Bs Antigen Hep Bs Antibody Hep B Core Total Ab Hep B Core IgM Ab Strongyloides IgG Ab Positive H TB Test (QFT) Nil 0.29 TB Test (QFT) Mitogen >10.00 TB Test (QFT) Antigen 3.15 TB Test (QFT) Positive H O & P Permanent Slide Pending 09/09/18 08:00 Hepatitis A Ab Total Pending Hep Bs Antigen Pending Hep Bs Antibody Pending Hep B Core Total Ab Pending Hep B Core IgM Ab Pending Strongyloides IgG Ab TB Test (QFT) Nil TB Test (QFT) Mitogen TB Test (QFT) Antigen TB Test (QFT) O & P Permanent Slide Problem List - Problems (1) Abdominal pain Assessment/Plan: Resolved No indication for surgery per Gregorio Code(s): R10.9 - UNSPECIFIED ABDOMINAL PAIN Qualifiers: Abdominal location: right upper quadrant Qualified Code(s): R10.11 - Right upper quadrant pain (2) Diarrhea Assessment/Plan: Resolved Code(s): R19.7 - DIARRHEA, UNSPECIFIED (3) Pancytopenia Assessment/Plan: with peripheral eosinophilia O&P pending continued work-up per primary team Unclear significance of + IgG strongyloides Ab hepatitis serolgies pending He denies heavy alcohol consumption. I Advised complete alcohol cessation Code(s): D61.818 - OTHER PANCYTOPENIA
--- NOTE | 2018-09-09 17:00 | DS ---
Physical Exam: SUBJECTIVE: Patient seen and examined at bedside. No acute events overnight. OBJECTIVE: Vital Signs Period Temp Pulse Resp BP Sys/Billy Pulse Ox Last 24 Hr 97.7 F-98.2 F 67-72 18-20 114-143/57-73 94-97 PHYSICAL EXAM GENERAL: AAOx3. Laying comfortably. HEENT: AT/NC. EOMI. Dry mucus membranes. NECK: Normal range of motion, supple. LUNGS: B/l fine crackles in lower lung bases. Symmetric chest rise. HEART: RRR. Normal S1, S2. No murmurs noted. ABDOMEN: Soft. Minimally tender to palpation in RUQ. Hypoactive BS. MUSCULOSKELETAL: Normal range of motion at all joints EXTREMITIES: 5/5 muscle strength in u/l b/l extremities. NEUROLOGICAL: Cranial nerves II-XII intact. Normal speech. LABS Laboratory Results - last 24 hr 09/09/18 09/09/18 08:00 08:00 WBC 3.9 L RBC 3.91 L Hgb 11.9 Hct 34.1 L MCV 87.3 MCH 30.5 MCHC 35.0 RDW 14.2 Plt Count 104 L MPV 12.2 H Absolute Neuts (auto) 2.3 Neutrophils % 58.6 Lymphocytes % 23.9 Monocytes % 7.7 Eosinophils % 9.2 H Basophils % 0.6 Nucleated RBC % 0 Sodium 138 Potassium 3.7 Chloride 104 Carbon Dioxide 26 Anion Gap 8 BUN 10 Creatinine 0.9 Creat Clearance w eGFR > 60 Random Glucose 95 Calcium 8.8 Ferritin 259.6 Total Bilirubin 0.4 AST 33 ALT 28 Alkaline Phosphatase 89 Total Protein 6.7 Albumin 3.4 HOSPITAL COURSE: Date of Admission:09/03/18 IMAGING: * CXR: Interval patchy airspace nodular-like densities in the RUL at site of previously visualized multiple bulla suggestive of infiltrates w/ pleural thickening. * Abd U/S: Borderline over-distended GB w/o intraluminal stones or sonographic evidence of acute cholecystitis. Multiple R renal cysts/parapelvic cysts w/ the largest measuring 5.3 x 3.9 cm. Splenomegaly. * CTAP w/ IV contrast: apical predominant emphysema/bullous disease / biapical pleural calcifications Left > right / chronic appearing loculated effusions with more acute smaller effusions at the bases * HIDA scan: No filling of GB after 2 hours of imaging suggestive of cystic duct obstruction and acute rosmery in R clinical setting. * repeat HIDA scan (09/08/18): Filling of the GB excludes cystic duct obstruction. Findings of HIDA on 09/06/18 could be secondary to false positive scan or there has been interval passage of the obstructive cystic duct stone. Delayed filling of the GB only after admin of morphine suggestive of chronic cholecystitis. 77M w/ pmhx of COPD, GERD, EtOH abuse presented to the hospital with 1 day history of abdominal pain and admitted for the treatment of pancolitis and partial small bowel ileus vs obstruction. Initial abdominal u/l showed borderline over-distended GB w/o gallstones or sonographic evidence of acute cholecystitis. In the ED, he was given 1 dose of IV Ertapenem, Morphine for pain control, kept NPO. CTAP done was remarkable for GB distension w/ mild wall thickening and pericholecystic fluid; Mild periportal edema, distended proximal small bowel loops, and findings c/w diffuse pancolotis. Surg evaluated pt and found no need for surg intervention as symptoms were likely c/w infectious colitis. A HIDA scan was done with results suggestive of cystic duct obstruction and acute cholecystitis. A repeat HIDA scan was done 2 days later due to resolving abdominal symptoms, which subsequently showed findings suggestive of chronic cholecystitis. Additionally, lab studies showed eosinophilia, and as a result ID was consulted. Due to pt's eosinophilia, there was concern for possible parasitic infection given pt's recent travel history from the [place]. As a result, Strongyloides Ab, stool ova/parasites, stool cx, C. diff were ordered for further evaluation. Pt was found to have +Strongyloides Ab and was subsequently started on PO Ivermectin. Incidentally, CT imaging showed extensive pulmonary disease. Pt was seen and evaluated by pulm with findings consistent with chronic bronchitis. Through pt's hospital course, the symptoms of abdominal pain improved. He was started on a clear liquid diet and tolerated PO. He was discharged home and advised to follow up with his PCP, pulm, ID, Date of Discharge: 09/09/18 Discharge Summary Reason For Visit: ILEUS ABDOMINAL PAIN Current Active Problems Pancytopenia (Acute) Condition: Improved - Instructions Diet, Activity, Other Instructions: You were seen in the hospital for complaints of abdominal pain. Imaging studies of your abdomen were done that showed chronic cholecystitis. You were placed on bowel rest for your abdominal pain and your symptoms improved. You were evaluated by surgery and found to have no need for surgical intervention at this time. Additionally, you were found to have low blood count levels. Blood work was done for further evaluation. You will need outpatient follow up with a wire mesh gate assembler for your abnormal blood count levels. Your imaging also showed evidence of lung disease. You are being discharged home. MEDICATION INSTRUCTIONS 1. You do not need to continue to take antibiotics at home. 2. Please avoid fatty food as this may make your abdominal symptoms worse. 3. Please take vitamin B12 at home once daily 4. Your blood work was positive for a previous parasitic infection. You will need to follow up with your primary care physician in 2 weeks to take another dose of medication for this infection. REFERRALS Please follow up with your primary care physician. If you do not have a primary doctor, you may make an appointment with Dr. Louise at [facility]. The number to call is . You should follow up your iron studies and hepatitis studies. Please follow up with your outdoor fitness trainer, Dr. Armijo, within 1 week. You will need pulmonary functions test done as an outpatient. Please follow up with the wire mesh gate assembler, Dr. Vonnie Pritchett. You will need outpatient follow up regarding your abnormal blood levels. This is very important. Please follow up with the infection doctor, Dr. Hwang. You had a positive test for tuberculosis - which we are still confirming. This does not necessarily mean you have the disease, but you need to see the infection doctor to discuss this. You were also tested positive for a previous parasitic infection. You will need follow up for this infection and to take another dose of medication. If you experience worsening abdominal pain, nausea/vomiting, fever/chills, persistent diarrhea, chest pain, shortness of breath, or other associated symptoms, please proceed to your nearest emergency immediately. Referrals: [facility] [place] [facility] [Provider Group] - 1 Week Marquita Hwang MD [Staff Physician] - 1 Week Vonnie Pritchett MD [Staff Physician] - 1 Week Tejas Armijo MD [Staff Physician] - 1 Week Disposition: HOME - Home Medications Comprehensive Discharge Medication List: Ambulatory Orders Cyanocobalamin (Vitamin B-12) [Vitamin B-12] 1,000 mcg PO DAILY #30 tablet 09/09 - Discharge Referral Referred to [facility] No
--- NOTE | 2018-09-09 17:26 | PN ---
Progress Note (short form) - Note Progress Note: pain resolved completely repeat hida scan is negative- surgery cancelled no diarrhea since admission he is eating a regular diet Vital Signs Period Temp Pulse Resp BP Sys/Billy Pulse Ox Last 24 Hr 97.7 F-98.2 F 67-72 18-20 114-143/57-73 94-97 cor-rrr llungs clear abd soft,nt ext no edema CBC, BMP 09/09/18 08:00 09/09/18 08:00 Laboratory Tests 09/06/18 09/07/18 05:55 17:00 HIV 1&2 Antibody Screen Negative HIV P24 Antigen Negative Strongyloides IgG Ab Positive H a/p abdominal pain and diarrhea have resolved eosinophilia with positive strongyloides antibidody- would treat with ivermectin -just weighed 68 kg would give ivermectin 12 mg po today and again in 2 weeks (can f/u with his PMD for this) severe copd/ild HIV negative d/w hospitalist Problem List - Problems (1) Abdominal pain Code(s): R10.9 - UNSPECIFIED ABDOMINAL PAIN Qualifiers: Abdominal location: right upper quadrant Qualified Code(s): R10.11 - Right upper quadrant pain (2) Colitis Code(s): K52.9 - NONINFECTIVE GASTROENTERITIS AND COLITIS, UNSPECIFIED (3) Abnormal CXR Code(s): R93.89 - ABNORMAL FINDINGS ON DX IMAGING OF OTH BODY STRUCTURES (4) Eosinophilia Code(s): D72.1 - EOSINOPHILIA (5) Penicillin allergy Code(s): Z88.0 - ALLERGY STATUS TO PENICILLIN
[2018-09-09] MEDS ORDERED: IVERMECTIN 3 MG TABLET PO ONE (18:00)
[2018-09-10 01:17] LABS: HEPATITIS B CORE ANTIBODY,IGM Negative (Negative)
[2018-09-10 04:17] LABS: SERUM IRON SATURATION 13 % (15-55); TOTAL IRON BINDING CAPACITY 184 ug/dL (250-450); UIBC 160 ug/dL (111-343)
[2018-09-10 16:22] LABS: HBSAG SCREEN Negative (Negative); HEP A AB, IGM Negative (Negative); HEP B CORE AB, TOT Positive (Negative)
== END 2018-09-09 18:15 | disposition home or self-care (01) | DRG 245 ==
LOC: JER 12:00 → JERBED 19:31 → J5S 21:51
PROVIDERS: ADMIT Internal Medicine; ATTEND Internal Medicine
DX: K51.00 Ulcerative (chronic) pancolitis without complications (principal); R10.11 Right upper quadrant pain; D72.1 Eosinophilia; Z88.0 Allergy status to penicillin; D61.818 Other pancytopenia; K81.1 Chronic cholecystitis; K21.9 Gastro-esophageal reflux disease without esophagitis; N28.1 Cyst of kidney, acquired; E86.0 Dehydration; J44.9 Chronic obstructive pulmonary disease, unspecified; D69.6 Thrombocytopenia, unspecified; E83.42 Hypomagnesemia; K81.0 Acute cholecystitis; F10.10 Alcohol abuse, uncomplicated; D64.9 Anemia, unspecified; Z87.891 Personal history of nicotine dependence; R60.9 Edema, unspecified; K56.7 Ileus, unspecified
CPT/HCPCS: 36415; 71045-TC-FY; 71250-TC; 74177-TC; 76700-TC; 78226-TC; 80053; 81003; 82550; 82607; 82728; 82962; 83540; 83550; 83605; 83615; 83690; 83735; 84100; 84439; 84466; 84478; 84484; 85025; 85027; 85610; 85730; 86480; 86682; 86704; 86705; 86706; 86708; 86850; 86900; 86901; 87040; 87045; 87046; 87086; 87116; 87177; 87206; 87209; 87324; 87340; 87389; 87449; 93005; 93010; 99283-25; A9537; J0131; J7030

== ENCOUNTER 2018-10-04 15:52 | Emergency (ER) | payer OTHER ==
[2018-10-04 16:00] VITALS: BMI 24.3
--- NOTE | 2018-10-04 16:01 | PDOC ---
History of Present Illness - General Chief Complaint: Chest Pain Stated Complaint: CHEST PAIN Time Seen by Provider: 10/04/18 16:01 History Source: Patient, Family Exam Limitations: Language Barrier - History of Present Illness Initial Comments: 10/04/18 16:33 77 year old male with PMH COPD, etoh abuse (last drink x4 months ago), strongyloides infectious colitis, GERD, small bowel ileus presented to ED for chest pain x4 weeks worsening at 1500, lasting until 1530 today. Pt stated his chest pain initially began a few days after his recent discharge (09/09/18), but intensified today. Pt stated his chest pain today was sharp, radiating to his left arm, worsened by exertion/movement/palpation/ deep inspiration. Pt stated when the pain began he was eating. Pt admitted to shortness of breath with the pain. Pt admitted to nonproductive cough today. Pt stated he had a 30 minute period of entire left body cramping during the intense chest pain episode. Pt stated he is currently chest pain free. Recent hospital course: - Admitted 09/03/2018 for infectious pancolitis + small bowel ileus - Stool sample positive for Strongyloides - Pt given first dose Ivermectin 12 mg PO - Discharged 09/09/2018 with plan to F/U in [address] Hwang for second dose Ivermectin - Pt stated he did not follow up with any physician after his discharge Allergies: PCN Past History - Past Medical History Allergies/Adverse Reactions: Allergies Allergy/AdvReac Type Severity Reaction Status Date / Time Penicillins Allergy Unknown Verified 10/04/18 16:01 aspirin Allergy Itching Verified 10/04/18 16:39 Home Medications: Ambulatory Orders Cyanocobalamin (Vitamin B-12) [Vitamin B-12] 1,000 mcg PO DAILY #30 tablet 09/09 Docusate Sodium [Colace] 100 mg PO DAILY 10/04/18 Ferrous Sulfate 325 mg PO DAILY 10/04/18 Polyethylene Glycol 3350 [Miralax (For Daily Use) -] 17 gm PO DAILY 10/04/18 Tamsulosin HCl [Flomax] 0.4 mg PO BID 10/04/18 COPD: Yes Disorders: Yes (renal cysts) - Immunization History Immunization Up to Date: No - Suicide/Smoking/Psychosocial Hx Smoking History: Former smoker Have you smoked in the past 12 months: No If you are a former smoker, when did you quit?: 2012 Information on smoking cessation initiated: No Hx Alcohol Use: No Drug/Substance Use Hx: No Substance Use Type: None Review of Systems - Review of Systems Able to Perform ROS?: Yes Comments:: 10/04/18 16:39 General: denied fever, chills, night sweats, generalized weakness. HEENT: denied sore throat, rhinorrhea, ear pain. Heart: admitted to chest pain. denied palpitations, syncope, diaphoresis. Respiratory: admitted to shortness of breath, cough. denied sputum production, hemoptysis. Abdomen: denied abdominal pain, nausea, vomiting, diarrhea, constipation, blood in stool. : denied dysuria, increased urinary frequency, hematuria, urinary incontinence , flank pain. Back: denied back pain. Musculoskeletal: admitted to cramping muscle pain. denied joint pain, joint swelling. Neurological: denied headache, dizziness, numbness, tingling, weakness. Skin: denied rash, laceration, abrasion. *Physical Exam - Vital Signs Last Vital Signs Temp Pulse Resp BP Pulse Ox 97 F L 77 16 125/67 100 10/04/18 15:56 10/04/18 15:56 10/04/18 15:56 10/04/18 15:56 10/04/18 15:56 - Physical Exam Comments: 10/04/18 16:40 Constitutional: Well-nourished, Well-developed, appearing stated age. HEENT: head is normocephalic, atraumatic. EOMI. PERRLA. Neck: supple. Full ROM. Heart: regular rhythm. no murmurs, rubs or gallops. Lungs: clear to auscultation bilaterally. no crackles, rhonchi or wheezing. no stridor. Abdomen: soft, nontender. normal bowel sounds. no rebound, guarding, masses. Extremities: peripheral pulses intact. no lower extremity edema. full ROM left shoulder and left elbow. Neurological: CN 2-12 grossly intact. moves all four extremities. Psych: awake, alert, oriented x3. follows commands. answers questions appropriately. Skin: no rash to anterior or lateral chest wall. Moderate Sedation - Procedure Monitoring Vital Signs: Procedure Monitoring Vital Signs Temperature 97 F L 10/04/18 15:56 Pulse Rate 77 10/04/18 15:56 Respiratory Rate 16 10/04/18 15:56 Blood Pressure 125/67 10/04/18 15:56 O2 Sat by Pulse Oximetry (%) 100 10/04/18 15:56 ED Treatment Course - LABORATORY CBC & Chemistry Diagram: 10/04/18 16:30 10/04/18 16:30 Medical Decision Making - Medical Decision Making 10/04/18 16:37 77 year old male with above PMH presented to ED for chest pain x4 weeks, worsening today. Pt did not follow up and complete Ivermectin therapy for Stronglyloides infectious colitis. Recent hospital course: - Admitted 09/03/2018 for infectious pancolitis + small bowel ileus - Stool sample positive for Strongyloides - Pt given first dose Ivermectin 12 mg PO - Discharged 09/09/2018 with plan to F/U in [address] Hwang for second dose Ivermectin - Pt stated he did not follow up with any physician after his discharge Initial Vital Signs Temp Pulse Resp BP Pulse Ox 97 F L 77 16 125/67 100 10/04/18 15:56 10/04/18 15:56 10/04/18 15:56 10/04/18 15:56 10/04/18 15:56 Afebrile. No tachycardia. No tachypnea. Normal BP. No hypoxia on room air. Labs ordered: CBC, CMP, troponin, Mag, Phos Medications ordered: ASA 324 chew Imaging ordered: CXR EKG performed at 1608: rate 68, regular rhythm, normal axis, right RBB, no acute ST changes. Similar to prior 09/03/2018 1350. 10/04/18 16:46 Pt stated he is allergic to ASA, stated it makes him itchy. Allergy added to medical record. 10/04/18 16:54 CBC WBC 4.4 K/mm3 (4.0-10.0) 10/04/18 16:30 RBC 3.53 M/mm3 (4.00-5.60) L 10/04/18 16:30 Hgb 10.9 GM/dL (11.7-16.9) L 10/04/18 16:30 Hct 32.1 % (35.4-49) L 10/04/18 16:30 MCV 90.8 fl (80-96) 10/04/18 16:30 MCH 30.9 pg (25.7-33.7) 10/04/18 16:30 MCHC 34.1 g/dl (32.0-35.9) 10/04/18 16:30 RDW 14.5 % (11.9-15.9) 10/04/18 16:30 MPV 13.1 fl (7.5-11.1) H 10/04/18 16:30 Absolute Neuts (auto) 2.5 K/mm3 (1.5-8.0) 10/04/18 16:30 Neutrophils % 57.5 % (42.8-82.8) 10/04/18 16:30 Lymphocytes % 25.4 % (8-40) 10/04/18 16:30 Monocytes % 8.0 % (3.8-10.2) 10/04/18 16:30 Eosinophils % 8.6 % (0-4.5) H 10/04/18 16:30 Basophils % 0.5 % (0-2.0) 10/04/18 16:30 Nucleated RBC % 0 % (0-0) 10/04/18 16:30 No leukocytosis. Mild normocytic anemia. Eosinophilia - Prior 9.2 - Consistent with parasitic infection Thrombocytopenia - At baseline from 09/09/2018 10/04/18 17:19 CMP Sodium 136 mmol/L (136-145) 10/04/18 16:30 Potassium 5.1 mmol/L (3.5-5.1) 10/04/18 16:30 Chloride 104 mmol/L (98-107) 10/04/18 16:30 Carbon Dioxide 26 mmol/L (21-32) 10/04/18 16:30 Anion Gap 6 MMOL/L (8-16) L 10/04/18 16:30 BUN 27 mg/dL (7-18) H 10/04/18 16:30 Creatinine 1.3 mg/dL (0.55-1.3) 10/04/18 16:30 Creat Clearance w eGFR 53.82 (>60) 10/04/18 16:30 Random Glucose 91 mg/dL (74-106) 10/04/18 16:30 Calcium 9.2 mg/dL (8.5-10.1) 10/04/18 16:30 Phosphorus 3.9 mg/dL (2.5-4.9) 10/04/18 16:30 Magnesium 2.5 mg/dL (1.8-2.4) H 10/04/18 16:30 Total Bilirubin 0.5 mg/dL (0.2-1) 10/04/18 16:30 AST 9 U/L (15-37) L 10/04/18 16:30 ALT 35 U/L (13-61) 10/04/18 16:30 Alkaline Phosphatase 98 U/L (45-117) 10/04/18 16:30 Troponin I 0.02 ng/ml (0.00-0.05) 10/04/18 16:30 B-Natriuretic Peptide 849.1 pg/ml (5-450) H 10/04/18 16:30 Total Protein 8.5 g/dl (6.4-8.2) H 10/04/18 16:30 Albumin 3.6 g/dl (3.4-5.0) 10/04/18 16:30 No electrolyte abnormalities. DERRICK/dehydration - Cr 0.9 on 09/09/2018 - BUN/Cr = 20 No transaminitis. Normal troponin. Elevated BNP. Medications ordered: normal saline 500 cc bolus CXR report: chronic lung changes with fibrotic scarring and vague nodular densities in the upper lobes. large heart. prominent hilar markings. superimposed infiltrate or atelectasis at the bases cannot be excluded. correlation recommended. 10/04/18 17:[address] Amaya, ID electronic scanner operator for Dr. Hwang. He stated to give Ivermectin and have him follow up in the clinic. - Ivermectin 12 mg PO ordered 10/04/18 19:32 Pt refusing second troponin and EKG, stated he does not want any more blood taken. Call placed to pt's son who was at bedside prior, message left on his voicemail. 10/04/18 19:36 Son at bedside again, risks explained to patient and son. Pt wishes to sign out AMA. 10/04/18 19:46 Pt signed out AMA. Pt and son informed to follow up with multiple providers. Pt given discharge paperwork with referrals. *DC/Admit/Observation/Transfer Diagnosis at time of Disposition: Eosinophilia, Chest pain, Thrombocytopenia, History of strongyloidiasis - Discharge Dispostion Disposition: AGAINST MEDICAL ADVICE Condition at time of disposition: Stable Decision to Admit order: No - Referrals Referrals: Rimma Lira MD [Primary Care Provider] - Marquita Hwang MD [Staff Physician] - Tejas Armijo MD [Staff Physician] - Vonnie Pritchett MD [Staff Physician] - - Patient Instructions Printed Discharge Instructions: DI for Strongyloidiasis Additional Instructions: You were seen today for chest pain. Lab work: 1) Elevated eosinophils - an indication of a parasite infection - Call tomorrow morning and make an appointment with Dr. Hwang for 2 weeks from now to receive the second dose of the treatment 2) Elevated creatinine - a sign of kidney dysfunction; Elevated BNP - a sign of heart failure - Call tomorrow morning and make an appointment with your primary care doctor in 1-2 days to have these findings followed up on You must follow up with your primary care doctor in 1-2 days. You must follow up with your production repairer, Dr. Armijo, in 1-2 days. You must follow up with your corporation lawyer, Dr. Vonnie Estrada in 1-2 days. You must follow up with your infectious disease doctor, Dr. Hwang in 2 weeks. I have provided you with their contact information in the discharge paperwork. Take Tylenol over the counter for your pain. Take as advised on label. Drink lots of clear fluids, like water, to stay hydrated. Te vieron hoy por dolor en el pecho. Trabajo de laboratorio: 1) Eosinfilos elevados: anel indicacin de anel infeccin parasitaria - Llame maana por la maana y craig anel jordan con el Dr. Hwang dentro de 2 semanas para recibir la segunda dosis del tratamiento. 2) Creatinina elevada: un signo de disfuncin renal; BNP elevado: un signo de insuficiencia cardaca - Llame maana por la maana y craig anel jordan con caban mdico de atencin primaria en 1 o 2 liu para que estos hallazgos kayy seguidos Debe hacer un seguimiento con caban mdico de atencin primaria en 1 o 2 liu. Debe hacer un seguimiento con caban neumlogo, el Dr. Armijo, en 1-2 liu. Debe realizar un seguimiento con caban hematlogo, la Dra. Vonnie Estrada en 1 o 2 liu. Debe hacer un seguimiento con caban mdico de enfermedades infecciosas, el Dr. Hwang, en 2 semanas. Le he proporcionado caban informacin de contacto en el documento de helena. [place] Tylenol sobre el mostrador para caban dolor. Krunal blanquita se aconseja en la etiqueta. Marisol muchos lquidos alka, blanquita el agua, para mantenerse hidratado. - Post Discharge Activity
[2018-10-04] MEDS ORDERED: ASPIRIN 81 MG CHEWABLE TABLETS PO ONE (16:05)
[2018-10-04] MEDS ORDERED: ASPIRIN 81 MG CHEWABLE TABLETS ONE (16:38)
[2018-10-04 16:41] LABS: BASO % 0.5 % (0-2.0); EOS % 8.6 % (0-4.5); HEMATOCRIT 32.1 % (35.4-49); HEMOGLOBIN 10.9 GM/dL (11.7-16.9); LYMPH % 25.4 % (8-40); MCH 30.9 pg (25.7-33.7); MCHC 34.1 g/dl (32.0-35.9); MEAN CELL VOLUME 90.8 fl (80-96); MEAN PLT VOLUME 13.1 fl (7.5-11.1); NEUT % 57.5 % (42.8-82.8); RBC 3.53 M/mm3 (4.00-5.60); RDW 14.5 % (11.9-15.9); WHITE BLOOD COUNT 4.4 K/mm3 (4.0-10.0)
[2018-10-04 16:54] LABS: INR 1.08 (0.83-1.09); PROTHROMBIN TIME (PATIENT) 12.8 SEC (9.7-13.0)
[2018-10-04 16:57] LABS: ACTIVATED PTT 28.5 SECONDS (25.2-36.5)
--- NOTE | 2018-10-04 17:02 | PDOC ---
Attending Attestation - HPI HPI: 10/04/18 17:19 The patient is a 77 year old with a past medical history of COPD, GERD, strongyloides infectious colitis, and small bowel ileus here today for evaluation of chest pain. The patient reports that his chest pain began 4 weeks ago after his discharge from the hospital and comes in intermittent episodes. He reports that his worst episode was today and describes it as localized to the left anterior chest wall, lasting for 30 minutes, worse with exertion and palpitation, notes cramping on his whole left side, and notes associated shortness of breath. He also notes a non productive cough that started today. Patient denies headache, lightheadedness. Denies fever, chills. Denies nausea, vomiting, diarrhea, abdominal pain. Denies lower extremity edema. Allergies: penicillins, aspirin Social history: patient confirms alcohol abuse (last drink 4 months ago) PCP: Rimma Anderson - Physicial Exam PE: 10/04/18 17:19 GENERAL: Well-appearing, well-nourished. No apparent distress. HEENT: Normocephalic, atraumatic. PERRL, EOM intact. CARDIOVASCULAR: Normal S1, S2. Regular rate and rhythm. PULMONARY: Clear to auscultation bilaterally. ABDOMEN: Soft, non-distended, non-tender. EXTREMITIES: +Tenderness to the left axila, bicep, and deltoid. Normal ROM in all four extremities. SKIN: Warm, dry. No rash NEUROLOGICAL: No focal neurological deficits. - Medical Decision Making 10/04/18 4:54pm Call placed to Dr. Hwang's answering service, ID, awaiting call back. 5:36pm Second call placed to Dr. Hwang's answering service, ID, awaiting call back. 5:58pm Call returned from Dr. Amaya, project controller for Dr. Hwang, resident Dr. Elvis Montoya discussed case. <Renu Mcgraw - Last Filed: 10/04/18 17:58> - Resident Resident Name: Jessie Montoya - ED Attending Attestation I have performed the following: I have examined & evaluated the patient, The case was reviewed & discussed with the resident, I agree w/resident's findings & plan, Exceptions are as noted - Medical Decision Making 10/04/18 18:03 Dr Amaya recommended pt receive his ivermectin here and follow up as an outpt 10/04/18 19:42 pt had c/o chest pain but refused second troponin and signed AMA. His son will take him home <Sarina Lobo - Last Filed: 10/04/18 19:42> Attestations - Attestations 10/04/18 17:20 Documentation prepared by Renu Mcgraw, acting as biomedical engineering technologist for Sarina Lobo MD. <Renu Mcgraw - Last Filed: 10/04/18 17:58>
[2018-10-04 17:10] LABS: PLATELET COUNT 104 K/MM3 (134-434); PLATELET ESTIMATE DECREASED
[2018-10-04 17:17] LABS: ALBUMIN 3.6 g/dl (3.4-5.0); ALK PHOS 98 U/L (45-117); ANION GAP 6 MMOL/L (8-16); BILIRUBIN,TOTAL 0.5 mg/dL (0.2-1); BLOOD UREA NITROGEN 27 mg/dL (7-18); CALCIUM 9.2 mg/dL (8.5-10.1); CHLORIDE 104 mmol/L (98-107); CO2 26 mmol/L (21-32); CREATININE 1.3 mg/dL (0.55-1.3); GLUCOSE,RANDOM 91 mg/dL (74-106); MAGNESIUM 2.5 mg/dL (1.8-2.4); N-TERMINAL BNP 849.1 pg/ml (5-450); PHOSPHOROUS 3.9 mg/dL (2.5-4.9); POTASSIUM 5.1 mmol/L (3.5-5.1); SGOT/AST 9 U/L (15-37); SGPT/ALT 35 U/L (13-61); SODIUM 136 mmol/L (136-145); TOT PROT 8.5 g/dl (6.4-8.2)
[2018-10-04] MEDS ORDERED: SODIUM CHLORIDE 500 ML IV STA (17:21)
[2018-10-04] MEDS ORDERED: IVERMECTIN 3 MG TABLET PO ONE (17:57)
[2018-10-04 19:32] VITALS: BP 133/73; PULSE 70; TEMP 97.5
--- NOTE | 2018-10-05 13:48 | EKG ---
Test Reason : Blood Pressure : / mmHG Vent. Rate : 068 BPM Atrial Rate : 068 BPM P-R Int : 146 ms QRS Dur : 144 ms QT Int : 444 ms P-R-T Axes : 061 050 033 degrees QTc Int : 472 ms NORMAL SINUS RHYTHM POSSIBLE LEFT ATRIAL ENLARGEMENT RIGHT BUNDLE BRANCH BLOCK ABNORMAL ECG WHEN COMPARED WITH ECG OF 03-SEP-2018 13:50, NO SIGNIFICANT CHANGE WAS FOUND Confirmed by MD Ghulam, Douglas ([id number]) on 10/05/2018 1:48:17 PM Referred By: Confirmed By:Douglas Parmar MD
== END 2018-10-04 19:51 | disposition left against medical advice (07) ==
LOC: JER 15:52
PROC: 3E0337Z Introduction of Electrolytic and Water Balance Substance into Peripheral Vein, Percutaneous Approach (ICD-10-PCS; principal; 2018-10-04)
DX: R07.9 Chest pain, unspecified (principal); D72.1 Eosinophilia; D69.6 Thrombocytopenia, unspecified; Z86.19 Personal history of other infectious and parasitic diseases
CPT/HCPCS: 36415; 71045-TC-FY; 80053; 83735; 83880; 84100; 84484; 85025; 85610; 85730; 93005; 93010; 96360; 99283-25; J7030